=== PATIENT | female | born 1960 | race Two or more races ===

== ENCOUNTER 2024-12-23 19:30 | Inpatient (IN) | payer OTHER ==
[~2024-12-23] VITALS: Ht 175.3 cm; Wt 52.4 kg
[2024-12-23 20:01] LABS: BASOPHILS # (AUTO) 0.1 K/UL (0.0-0.2); BASOPHILS % (AUTO) 1.4 % (0.0-2.0); EOSINOPHILS % (AUTO) 0.1 % (0.0-7.0); HEMATOCRIT 34.4 % (31.2-41.9); HEMOGLOBIN 10.8 g/dL (10.9-14.3); LYMPHOCYTES # (AUTO) 1.6 K/uL (0.8-4.8); LYMPHOCYTES % (AUTO) 30.1 % (20.5-51.5); MEAN CORPUSCULAR HEMOGLOBIN 25.4 uug (24.7-32.8); MEAN CORPUSCULAR HGB CONC 31 g/dL (32.3-35.6); MEAN CORPUSCULAR VOLUME 80.9 fL (75.5-95.3); MONOCYTES # (AUTO) 0.4 K/uL (0.1-1.30); MONOCYTES % (AUTO) 6.6 % (0.0-11.0); NEUTROPHILS # (AUTO) 3.3 K/uL (1.8-8.9); NEUTROPHILS % (AUTO) 61.8 % (38.5-71.5); PLATELET COUNT (AUTO) 277 K/uL (179-408); RED BLOOD CELL COUNT(AUTO) 4.25 MIL/uL (3.63-4.92); RED CELL DISTRIBUTION WIDTH 23.9 % (12.3-17.7); WHITE BLOOD COUNT (AUTO) 5.3 K/uL (3.8-11.8)
[2024-12-23] MEDS ORDERED: DILTIAZEM HCL 25 MG IV ONE ×3 (20:01→22:04)
[2024-12-23 20:10] LABS: DIFFERENTIAL COMMENT 1
[2024-12-23 20:11] LABS: CALCIUM 9.6 mg/dL (8.5-10.1); CARBON DIOXIDE 24 mmol/L (21-32); CHLORIDE 101 mmol/L (98-107); CREATININE 1.8 mg/dL (0.6-1.3); GLUCOSE 189 mg/dL (74-106); POTASSIUM 4.7 mmol/L (3.5-5.1); SODIUM SERUM 138 mmol/L (136-145); UREA NITROGEN, BLOOD 58 mg/dL (7-18)
[2024-12-23] MEDS: DILTIAZEM HCL 25 MG IV IV ONE ×2 (20:11→22:10)
[2024-12-23 20:23] LABS: ALANINE AMINOTRANSFERASE 58 U/L (14-59); ALBUMIN 3.7 g/dL (3.4-5.0); ALKALINE PHOSPHATASE 164 U/L (50-136); ASPARTATE AMINOTRANSFERASE 59 U/L (15-37); BILIRUBIN,DIRECT 0.7 mg/dL (0.0-0.2); TOTAL PROTEIN, SERUM 8.5 g/dL (6.4-8.2)
[2024-12-23] MEDS ORDERED: DILTIAZEM HCL IV 125 MG in IV NORMAL SALINE 100 ML IV PRN (21:00)
[2024-12-23] MEDS: DILTIAZEM HCL IV 125 MG in IV NORMAL SALINE 100 ML IV PRN (21:41)
[2024-12-23] MEDS: IV NORMAL SALINE 1000 ML BAG IV ONE (22:04)
[2024-12-24] VITALS (13 sets, daily range): BP systolic 90–149; BP diastolic 31–82; TEMP 97.5–98.7; O2SAT 95–100
[2024-12-24] MEDS: HEPARIN SODIUM,PORCINE 5,000 UNITS/ML VIAL SQ SCH (02:10)
[2024-12-24] MEDS: CALCIUM CARBONATE 500 MG TAB.CHEW PO PRN (04:19)
[2024-12-24] MEDS: SIMETHICONE 80 MG TAB.CHEW PO PRN (05:41)
[2024-12-24 06:58] LABS: BASOPHILS # (AUTO) 0.1 K/UL (0.0-0.2); BASOPHILS % (AUTO) 1.2 % (0.0-2.0); EOSINOPHILS % (AUTO) 0.9 % (0.0-7.0); HEMATOCRIT 31.1 % (31.2-41.9); HEMOGLOBIN 9.9 g/dL (10.9-14.3); LYMPHOCYTES # (AUTO) 1.7 K/uL (0.8-4.8); LYMPHOCYTES % (AUTO) 31.3 % (20.5-51.5); MEAN CORPUSCULAR HEMOGLOBIN 25.9 uug (24.7-32.8); MEAN CORPUSCULAR HGB CONC 32 g/dL (32.3-35.6); MEAN CORPUSCULAR VOLUME 81.1 fL (75.5-95.3); MONOCYTES # (AUTO) 0.7 K/uL (0.1-1.30); MONOCYTES % (AUTO) 12.6 % (0.0-11.0); NEUTROPHILS # (AUTO) 2.9 K/uL (1.8-8.9); PLATELET COUNT (AUTO) 258 K/uL (179-408); RED BLOOD CELL COUNT(AUTO) 3.83 MIL/uL (3.63-4.92); WHITE BLOOD COUNT (AUTO) 5.4 K/uL (3.8-11.8)
[2024-12-24 07:09] LABS: DIFFERENTIAL COMMENT 1
[2024-12-24 07:20] LABS: CALCIUM 9.5 mg/dL (8.5-10.1); CREATININE 1.8 mg/dL (0.6-1.3); PHOSPHOROUS 4.6 mg/dL (2.5-4.9); POTASSIUM 4.9 mmol/L (3.5-5.1)
[2024-12-24] MEDS: DILTIAZEM HCL CD 240 MG CAP.SR.24H PO SCH (08:37)
[2024-12-24] MEDS: FUROSEMIDE 20 MG/2 ML VIAL IV SCH (09:13)
[2024-12-24] MEDS: METOPROLOL TARTRATE 50 MG TABLET PO SCH (09:13)
[2024-12-24] MEDS: DIGOXIN 125 MCG TABLET PO SCH (09:13)
[2024-12-24] MEDS: FAMOTIDINE. 20 MG/2 ML VIAL IV SCH (09:29)
[2024-12-24] MEDS ORDERED: WARF-68 PO (10:50)
[2024-12-24] MEDS ORDERED: WARF3TAB59 PO (10:51)
[2024-12-24] MEDS: GLUCERNA SHAKE 237 ML CAN PO SCH (17:15)
[2024-12-24] MEDS: WARFARIN SODIUM 2 MG TABLET PO SCH (17:17)
[2024-12-24] MEDS: MINERAL OIL FLEET ENEMA 133 ML BOTTLE RC ONE (18:34)
[2024-12-24] MEDS: ATROPINE SULFATE 1 MG/10 ML DISP.SYRIN IV ONE (18:37)
[2024-12-24] MEDS: ONDANSETRON 4 MG/2 ML VIAL IV PRN (20:59)
[2024-12-24] MEDS: MAGNESIUM HYDROXIDE 30 ML LIQUID UDC PO PRN (21:20)
[2024-12-24] MEDS: ACETAMINOPHEN 325 MG TABLET PO PRN (22:54)
[2024-12-25] VITALS (45 sets, daily range): BP systolic 76–143; BP diastolic 22–84; TEMP 89.9–98; O2SAT 92–100
[2024-12-25 07:18] LABS: BASOPHILS # (AUTO) 0.1 K/UL (0.0-0.2); BASOPHILS % (AUTO) 0.4 % (0.0-2.0); DIFFERENTIAL COMMENT 0; EOSINOPHILS # (AUTO) 0.3 K/uL (0.0-0.7); EOSINOPHILS % (AUTO) 1.4 % (0.0-7.0); HEMATOCRIT 34.5 % (31.2-41.9); LYMPHOCYTES # (AUTO) 0.9 K/uL (0.8-4.8); LYMPHOCYTES % (AUTO) 4.5 % (20.5-51.5); MEAN CORPUSCULAR HEMOGLOBIN 25.9 uug (24.7-32.8); MEAN CORPUSCULAR HGB CONC 29 g/dL (32.3-35.6); MEAN CORPUSCULAR VOLUME 89.4 fL (75.5-95.3); MONOCYTES # (AUTO) 1.5 K/uL (0.1-1.30); MONOCYTES % (AUTO) 7.7 % (0.0-11.0); NEUTROPHILS # (AUTO) 16.5 K/uL (1.8-8.9); PLATELET COUNT (AUTO) 242 K/uL (179-408); RED BLOOD CELL COUNT(AUTO) 3.86 MIL/uL (3.63-4.92); RED CELL DISTRIBUTION WIDTH 24.3 % (12.3-17.7); WHITE BLOOD COUNT (AUTO) 19.1 K/uL (3.8-11.8)
[2024-12-25] MEDS ORDERED: DOPamine IV DRIP 400 MG/250ML 250 ML IV PRN (07:45)
[2024-12-25 07:48] LABS: CREATINE KINASE, TOTAL 155 U/L (26-192)
[2024-12-25 08:12] LABS: ALANINE AMINOTRANSFERASE 252 U/L (14-59); ALBUMIN 3.1 g/dL (3.4-5.0); ALKALINE PHOSPHATASE 202 U/L (50-136); ASPARTATE AMINOTRANSFERASE 454 U/L (15-37); BILIRUBIN,DIRECT 1.4 mg/dL (0.0-0.2); BILIRUBIN,TOTAL 2.3 mg/dL (0.2-1.0); CALCIUM 9.4 mg/dL (8.5-10.1); CHLORIDE 103 mmol/L (98-107); CREATININE 2.9 mg/dL (0.6-1.3); MAGNESIUM 2.8 mg/dL (1.8-2.4); POTASSIUM 6.1 mmol/L (3.5-5.1); SODIUM SERUM 140 mmol/L (136-145); TOTAL PROTEIN, SERUM 7.4 g/dL (6.4-8.2); UREA NITROGEN, BLOOD 66 mg/dL (7-18)
[2024-12-25 08:21] LABS: CARBON DIOXIDE < 5 mmol/L (21-32); GLUCOSE 28 mg/dL (74-106); PHOSPHOROUS 11.2 mg/dL (2.5-4.9)
[2024-12-25 08:34] LABS: ABG BASE EXCESS -26.7 mmol/L (-2.0-3.0); ABG HCO3 5.2 mmol/L (21.0-28.0); ABG PCO2 28.2 mmHg (32.0-45.0); ABG PH 6.884 (7.350-7.450); ABG PO2 163.7 mmHg (83.0-108.0); ABG SITE RIGHT RADIAL; ABG TOTAL HEMOGLOBIN 10.4 G/dL (12.0-16.0); AaDO2 97.6 mmHg; COHb 0.3 % (0.5-1.5); MetHb 0.3 % (0.0-1.5); O2Hb 97.1 % (94.0-98.0)
[2024-12-25] MEDS ORDERED: CALCIUM CHLORIDE 1 GM/10 ML DISP.SYRIN IVP ONE (08:45)
[2024-12-25] MEDS ORDERED: ETOMIDATE 20 MG/10 ML VIAL ONE (08:45)
[2024-12-25 08:48] LABS: LACTIC ACID 17.9 mmol/L (0.4-2.0)
[2024-12-25] MEDS ORDERED: FAMOTIDINE. 20 MG/2 ML VIAL IV SCH ×2 (09:00→09:45)
[2024-12-25] MEDS ORDERED: PIPERACILLIN SODIUM/TAZOBACTAM 3.375 G in IV DEXTROSE 5% 50 ML IV SCH (09:30)
[2024-12-25] MEDS: SODIUM BICARBONATE 8.4% 50 MEQ/50 ML DISP.SYRIN IV ONE ×2 (09:36→10:56)
[2024-12-25] MEDS: SODIUM BICARBONATE 8.4% 150 MEQ in IV D5W 1000ML 1,000 ML IV SCH (09:36)
[2024-12-25] MEDS: DOPamine IV DRIP 400 MG/250ML 250 ML IV PRN (09:38)
[2024-12-25] MEDS: NOREPINEPHRINE 8MG/NS 250ML 250 ML IV PRN (09:39)
[2024-12-25] MEDS ORDERED: PIPERACILLIN/TAZO 2.25 G in IV DEXTROSE 5% 50 ML IV SCH (09:45)
[2024-12-25] MEDS ORDERED: SODIUM BICARBONATE 8.4% 100 MEQ in IV D5 1/2 NS 1000 ML 1,000 ML IV PRN (09:45)
[2024-12-25 09:48] LABS: EOSINOPHILS % (MANUAL) 1 % (0-8); LYMPHOCYTES % (MANUAL) 11 % (20-40); MONOCYTES % (MANUAL) 9 % (2-10); NEUTROPHILS % (MANUAL) 79 % (42-75); PLATELET ESTIMATE ADEQUATE
[2024-12-25 09:49] LABS: ANISOCYTOSIS 3+
[2024-12-25 10:34] LABS: ABG BASE EXCESS -18.5 mmol/L (-2.0-3.0); ABG HCO3 9.1 mmol/L (21.0-28.0); ABG PCO2 27.4 mmHg (32.0-45.0); ABG PH 7.137 (7.350-7.450); ABG PO2 361.1 mmHg (83.0-108.0); ABG SITE RIGHT RADIAL; ABG TOTAL HEMOGLOBIN 9.9 G/dL (12.0-16.0); AaDO2 99.7 mmHg; COHb 0.3 % (0.5-1.5); MetHb 0.3 % (0.0-1.5); O2Hb 99.1 % (94.0-98.0); VT, ABG 400 mL
[2024-12-25] MEDS: DEXTROSE 50% 50 ML DISP.SYRIN IV ONE (10:55)
[2024-12-25] MEDS: HYDROCORTISONE SOD SUCCINATE 100 MG/2 ML VIAL IV SCH (10:59)
[2024-12-25] MEDS: PANTOPRAZOLE SODIUM 40 MG VIAL IV SCH (10:59)
[2024-12-25] MEDS: VANCOMYCIN HCL 750 MG in IV DEXTROSE 5% 250 ML IV ONE (11:09)
[2024-12-25] MEDS: IV NS 1000 ML 1,000 ML IV ONE (12:13)
[2024-12-25] MEDS: PIPERACILLIN SODIUM/TAZOBACTAM 3.375 G in IV DEXTROSE 5% 100 ML IV SCH (12:39)
[2024-12-25 13:36] LABS: ALBUMIN 2.6 g/dL (3.4-5.0); BILIRUBIN,TOTAL 2.5 mg/dL (0.2-1.0); CALCIUM 9.3 mg/dL (8.5-10.1); CREATININE 3.2 mg/dL (0.6-1.3); MAGNESIUM 2.5 mg/dL (1.8-2.4); POTASSIUM 5.3 mmol/L (3.5-5.1); TOTAL PROTEIN, SERUM 6.1 g/dL (6.4-8.2)
[2024-12-25 13:39] LABS: BASOPHILS % (AUTO) 0.1 % (0.0-2.0); DIFFERENTIAL COMMENT 0; HEMATOCRIT 30.5 % (31.2-41.9); LYMPHOCYTES # (AUTO) 0.4 K/uL (0.8-4.8); LYMPHOCYTES % (AUTO) 2.3 % (20.5-51.5); MEAN CORPUSCULAR HEMOGLOBIN 25.5 uug (24.7-32.8); MEAN CORPUSCULAR HGB CONC 30 g/dL (32.3-35.6); MEAN CORPUSCULAR VOLUME 86.2 fL (75.5-95.3); MONOCYTES % (AUTO) 5.9 % (0.0-11.0); NEUTROPHILS # (AUTO) 15.5 K/uL (1.8-8.9); NEUTROPHILS % (AUTO) 91.7 % (38.5-71.5); PLATELET COUNT (AUTO) 203 K/uL (179-408); RED BLOOD CELL COUNT(AUTO) 3.54 MIL/uL (3.63-4.92); RED CELL DISTRIBUTION WIDTH 24.4 % (12.3-17.7); WHITE BLOOD COUNT (AUTO) 16.9 K/uL (3.8-11.8)
[2024-12-25] MEDS ORDERED: DEXTROSE 50% 50 ML DISP.SYRIN IV PRN (14:15)
[2024-12-25 14:37] LABS: *BILIRUBIN,URIN NEGATIVE (NEGATIVE); *BLOOD, URINE 2+ (NEGATIVE); *COLOR,URINE YELLOW (YELLOW); *KETONES,URINE NEGATIVE (NEGATIVE); *PROTEIN,URINE 3+ (NEGATIVE); *UROBILINOGEN,URINE 0.2 E.U./dl (NORMAL); LEUKOCYTE ESTERASE ,URINE NEGATIVE (NEGATIVE); NITRITE, URINE NEGATIVE (NEGATIVE); UGLUCOSE 1+ (NEGATIVE)
[2024-12-25 14:40] LABS: *CLARITY,URINE SLIGHTLY CLOUDY (CLEAR)
[2024-12-25 14:51] LABS: BACTERIA,URINE MANY /HPF (NONE SEEN); SQUAMOUS EPITHELIAL CELL,UR FEW /HPF (NONE SEEN)
[2024-12-25 16:18] LABS: HIV-1 p24 ANTIGEN NON REACTIVE (NONREACTIVE); HIV-1/2 ANTIBODY NON REACTIVE (NONREACTIVE)
[2024-12-25] MEDS ORDERED: WARFARIN SODIUM 2 MG TABLET PO SCH (17:00)
[2024-12-25] MEDS: BLOOD SUGAR DIAGNOSTIC 1 EACH STRIP VI SCH (17:57)
[2024-12-25] MEDS: INSULIN REGULAR, HUMAN 1000 UNIT/10 ML VIAL SQ PRN (17:58)
[2024-12-25] MEDS: HEPARIN SODIUM,PORCINE 5,000 UNITS/ML VIAL SQ SCH (20:50)
[2024-12-25 23:42] LABS: ALBUMIN 2.4 g/dL (3.4-5.0); BILIRUBIN,TOTAL 2.2 mg/dL (0.2-1.0); CALCIUM 8.4 mg/dL (8.5-10.1); CREATININE 3.7 mg/dL (0.6-1.3); MAGNESIUM 2.3 mg/dL (1.8-2.4); PHOSPHOROUS 5.5 mg/dL (2.5-4.9); POTASSIUM 4.4 mmol/L (3.5-5.1)
[2024-12-26] VITALS (87 sets, daily range): BP systolic 81–146; BP diastolic 44–109; TEMP 97.3–98.4; O2SAT 97–100
[2024-12-26] MEDS: PROPOFOL 100 ML IV PRN ×2 (00:55→16:12)
[2024-12-26 05:18] LABS: BASOPHILS # (AUTO) 0.2 K/UL (0.0-0.2); HEMATOCRIT 25.5 % (31.2-41.9); HEMOGLOBIN 8.3 g/dL (10.9-14.3); LYMPHOCYTES # (AUTO) 0.5 K/uL (0.8-4.8); LYMPHOCYTES % (AUTO) 3.7 % (20.5-51.5); MEAN CORPUSCULAR HEMOGLOBIN 26.2 uug (24.7-32.8); MEAN CORPUSCULAR HGB CONC 33 g/dL (32.3-35.6); MEAN CORPUSCULAR VOLUME 80.6 fL (75.5-95.3); MONOCYTES # (AUTO) 0.7 K/uL (0.1-1.30); MONOCYTES % (AUTO) 4.8 % (0.0-11.0); NEUTROPHILS # (AUTO) 13.6 K/uL (1.8-8.9); NEUTROPHILS % (AUTO) 90.5 % (38.5-71.5); PLATELET COUNT (AUTO) 181 K/uL (179-408); RED BLOOD CELL COUNT(AUTO) 3.16 MIL/uL (3.63-4.92); RED CELL DISTRIBUTION WIDTH 23.4 % (12.3-17.7)
[2024-12-26 05:19] LABS: DIFFERENTIAL COMMENT 1
[2024-12-26 05:27] LABS: ABG BASE EXCESS 5.7 mmol/L (-2.0-3.0); ABG HCO3 27.1 mmol/L (21.0-28.0); ABG PH 7.604 (7.350-7.450); ABG SITE RIGHT RADIAL; ABG TOTAL HEMOGLOBIN 9.1 G/dL (12.0-16.0); AaDO2 98.7 mmHg; COHb 0.3 % (0.5-1.5); MetHb 0.3 % (0.0-1.5); O2Hb 97.4 % (94.0-98.0); VT, ABG 400 mL
[2024-12-26 05:36] LABS: MAGNESIUM 2.5 mg/dL (1.8-2.4); PHOSPHOROUS 4.3 mg/dL (2.5-4.9)
[2024-12-26 05:39] LABS: C-REACTIVE PROTEIN 5.08 mg/dL (0.00-0.30)
[2024-12-26 05:41] LABS: ALBUMIN 2.2 g/dL (3.4-5.0); BILIRUBIN,TOTAL 2.1 mg/dL (0.2-1.0); CREATININE 3.8 mg/dL (0.6-1.3); POTASSIUM 3.7 mmol/L (3.5-5.1); TOTAL PROTEIN, SERUM 5.5 g/dL (6.4-8.2)
[2024-12-26 06:00] LABS: VANCOMYCIN,RANDOM 14.6 ug/mL (20.0-30.0)
[2024-12-26 08:07] LABS: PTH, INTACT 50 pg/mL (15-65)
[2024-12-26 08:07] LABS: HEPATITIS B CORE AB, TOTAL Negative (Negative); HEPATITIS B SURFACE AB, QUAL Non Reactive (.); HEPATITIS B SURFACE AG Negative (Negative); HEPATITIS C VIRUS ANTIBODY Non Reactive (Non Reactive)
[2024-12-26] MEDS ORDERED: ACETYLCYSTEINE IV 0 MG in IV DEXTROSE 5% 200 ML IV ONE (08:30)
[2024-12-26] MEDS ORDERED: VANCOMYCIN HCL 750 MG in IV DEXTROSE 5% 250 ML IV ONE (12:00)
[2024-12-26] MEDS: IV LACTATED RINGERS SOLUTION 1,000 ML IV PRN (13:00)
[2024-12-26] MEDS: ACETYLCYSTEINE IV ONE ×2 (13:42→15:51)
[2024-12-26] MEDS: DEXTROSE 5% IV ONE ×2 (13:42→15:51)
[2024-12-26] MEDS: MIDAZOLAM HCL 50 MG in IV NORMAL SALINE 40 ML IV PRN (14:25)
[2024-12-26 17:32] LABS: *BILIRUBIN,URIN NEGATIVE (NEGATIVE); *BLOOD, URINE 3+ (NEGATIVE); *CLARITY,URINE SLIGHTLY CLOUDY (CLEAR); *COLOR,URINE LIGHT YELLOW (YELLOW); *KETONES,URINE NEGATIVE (NEGATIVE); *PROTEIN,URINE 2+ (NEGATIVE); *UROBILINOGEN,URINE 0.2 E.U./dl (NORMAL); LEUKOCYTE ESTERASE ,URINE 2+ (NEGATIVE); NITRITE, URINE NEGATIVE (NEGATIVE); PH,URINE 8.5 (5.0-8.0); UGLUCOSE NEGATIVE (NEGATIVE)
[2024-12-26 17:48] LABS: *CREATININE,URINE < 13.0 mg/dL (30-125); *SODIUM RNDM,URINE 74 mmol/L (40-220); *URINE TOTAL PROTEIN RANDOM 56.5 mg/dL (<150/24HR)
[2024-12-26] MEDS ORDERED: DEXTROSE 5% IV ONE (19:00)
[2024-12-26] MEDS ORDERED: ACETYLCYSTEINE IV ONE (19:00)
[2024-12-26 19:26] LABS: RBC,URINE 20-50 /HPF (0-3); SQUAMOUS EPITHELIAL CELL,UR FEW /HPF (NONE SEEN)
[2024-12-26 19:27] LABS: BACTERIA,URINE MODERATE /HPF (NONE SEEN)
[2024-12-26] MEDS: ACETYLCYSTEINE IV SCH (19:56)
[2024-12-26] MEDS: DEXTROSE 5% IV SCH (19:56)
[2024-12-27] VITALS (101 sets, daily range): BP systolic 72–160; BP diastolic 23–129; TEMP 97.5–98.7; O2SAT 96–100
[2024-12-27 05:26] LABS: ABG BASE EXCESS 6.1 mmol/L (-2.0-3.0); ABG HCO3 26.1 mmol/L (21.0-28.0); ABG PCO2 24.6 mmHg (32.0-45.0); ABG PH 7.643 (7.350-7.450); ABG PO2 103.6 mmHg (83.0-108.0); ABG SITE LEFT RADIAL; ABG TOTAL HEMOGLOBIN 11.9 G/dL (12.0-16.0); AaDO2 98.7 mmHg; COHb 0.4 % (0.5-1.5); MetHb 0.3 % (0.0-1.5); O2Hb 97.3 % (94.0-98.0); VT, ABG 400 mL
[2024-12-27 05:48] LABS: HEMATOCRIT 33.5 % (31.2-41.9); HEMOGLOBIN 10.8 g/dL (10.9-14.3); LYMPHOCYTES # (AUTO) 0.7 K/uL (0.8-4.8); LYMPHOCYTES % (AUTO) 3.6 % (20.5-51.5); MEAN CORPUSCULAR HEMOGLOBIN 25.7 uug (24.7-32.8); MEAN CORPUSCULAR HGB CONC 32 g/dL (32.3-35.6); MEAN CORPUSCULAR VOLUME 79.8 fL (75.5-95.3); MONOCYTES # (AUTO) 0.4 K/uL (0.1-1.30); MONOCYTES % (AUTO) 2.1 % (0.0-11.0); NEUTROPHILS # (AUTO) 19.8 K/uL (1.8-8.9); NEUTROPHILS % (AUTO) 94.3 % (38.5-71.5); PLATELET COUNT (AUTO) 178 K/uL (179-408)
[2024-12-27 05:50] LABS: DIFFERENTIAL COMMENT 1
[2024-12-27 05:53] LABS: AMMONIA < 10 umol/L (11-32)
[2024-12-27 06:05] LABS: LACTIC ACID 3.3 mmol/L (0.4-2.0)
[2024-12-27 06:10] LABS: ALANINE AMINOTRANSFERASE 1614 U/L (14-59); ALBUMIN 2.4 g/dL (3.4-5.0); ALKALINE PHOSPHATASE 169 U/L (50-136); ASPARTATE AMINOTRANSFERASE 1914 U/L (15-37); BILIRUBIN,DIRECT 1.5 mg/dL (0.0-0.2); BILIRUBIN,TOTAL 2.8 mg/dL (0.2-1.0); MAGNESIUM 2.8 mg/dL (1.8-2.4); PHOSPHOROUS 3.4 mg/dL (2.5-4.9); TOTAL PROTEIN, SERUM 6.4 g/dL (6.4-8.2); VANCOMYCIN,RANDOM 10.1 ug/mL (20.0-30.0)
[2024-12-27 09:11] LABS: CALCIUM 8.4 mg/dL (8.5-10.1); CREATININE 3.6 mg/dL (0.6-1.3); POTASSIUM 3.1 mmol/L (3.5-5.1)
[2024-12-27] MEDS: POTASSIUM CHLORIDE 50 ML IV SCH (11:01)
[2024-12-27] MEDS: VANCOMYCIN HCL 750 MG in IV DEXTROSE 5% 250 ML IV ONE (11:14)
[2024-12-28] VITALS (101 sets, daily range): BP systolic 108–196; BP diastolic 46–108; TEMP 97–98.3; O2SAT 99–100
[2024-12-28] MEDS ORDERED: ACETAMINOPHEN 325 MG TABLET PO PRN (05:00)
[2024-12-28 05:26] LABS: ABG BASE EXCESS 2.1 mmol/L (-2.0-3.0); ABG HCO3 23.3 mmol/L (21.0-28.0); ABG PCO2 25.9 mmHg (32.0-45.0); ABG PH 7.571 (7.350-7.450); ABG PO2 116.4 mmHg (83.0-108.0); ABG SITE RIGHT RADIAL; ABG TOTAL HEMOGLOBIN 10.9 G/dL (12.0-16.0); AaDO2 98.8 mmHg; COHb 0.3 % (0.5-1.5); MetHb 0.3 % (0.0-1.5); O2Hb 97.8 % (94.0-98.0); VT, ABG 400 mL
[2024-12-28 05:30] LABS: BASOPHILS % (AUTO) 0.1 % (0.0-2.0); HEMATOCRIT 30.7 % (31.2-41.9); HEMOGLOBIN 9.9 g/dL (10.9-14.3); LYMPHOCYTES # (AUTO) 0.8 K/uL (0.8-4.8); LYMPHOCYTES % (AUTO) 4.6 % (20.5-51.5); MEAN CORPUSCULAR HEMOGLOBIN 25.9 uug (24.7-32.8); MEAN CORPUSCULAR HGB CONC 32 g/dL (32.3-35.6); MEAN CORPUSCULAR VOLUME 80.3 fL (75.5-95.3); MONOCYTES # (AUTO) 0.5 K/uL (0.1-1.30); MONOCYTES % (AUTO) 2.7 % (0.0-11.0); NEUTROPHILS # (AUTO) 17.1 K/uL (1.8-8.9); NEUTROPHILS % (AUTO) 92.6 % (38.5-71.5); PLATELET COUNT (AUTO) 157 K/uL (179-408); RED BLOOD CELL COUNT(AUTO) 3.83 MIL/uL (3.63-4.92); RED CELL DISTRIBUTION WIDTH 24.3 % (12.3-17.7); WHITE BLOOD COUNT (AUTO) 18.5 K/uL (3.8-11.8)
[2024-12-28 05:35] LABS: DIFFERENTIAL COMMENT 1
[2024-12-28 05:57] LABS: MAGNESIUM 2.4 mg/dL (1.8-2.4); VANCOMYCIN,RANDOM 18.6 ug/mL (20.0-30.0)
[2024-12-28 06:00] LABS: ALBUMIN 2.1 g/dL (3.4-5.0); BILIRUBIN,TOTAL 1.8 mg/dL (0.2-1.0); CALCIUM 7.9 mg/dL (8.5-10.1); CREATININE 2.8 mg/dL (0.6-1.3); POTASSIUM 2.9 mmol/L (3.5-5.1); TOTAL PROTEIN, SERUM 5.7 g/dL (6.4-8.2)
[2024-12-28 06:15] LABS: ANISOCYTOSIS 2+; BAND % (MANUAL) 3 % (0-10); HYPOCHROMASIA 1+; LYMPHOCYTES % (MANUAL) 4 % (20-40); MONOCYTES % (MANUAL) 3 % (2-10); MYELOCYTES % 1 % (0-0); NEUTROPHILS % (MANUAL) 89 % (42-75); OVALOCYTES 2+; PLATELET ESTIMATE ADEQUATE; TARGET CELLS 1+
[2024-12-28] MEDS: PHYTONADIONE 10 MG/1 ML AMPUL SQ ONE (09:45)
[2024-12-28] MEDS: POTASSIUM CHLORIDE 20 MEQ POWDER PACKET GT ONE (09:45)
[2024-12-28] MEDS: VANCOMYCIN IV 500 MG in IV DEXTROSE 5% 100 ML IV ONE (09:46)
[2024-12-28 18:09] LABS: THYROID STIMULATING HORMONE 0.079 mIU/mL (0.358-3.740)
[2024-12-28 19:14] LABS: HIV-1 p24 ANTIGEN NON REACTIVE (NONREACTIVE); HIV-1/2 ANTIBODY NON REACTIVE (NONREACTIVE)
[2024-12-28 19:24] LABS: *RHEUMATOID FACTOR SCREEN NEGATIVE (NEGATIVE)
[2024-12-29] VITALS (93 sets, daily range): BP systolic 116–160; BP diastolic 66–112; TEMP 97.4–97.6; O2SAT 98–100
[2024-12-29 05:32] LABS: BASOPHILS % (AUTO) 0.2 % (0.0-2.0); DIFFERENTIAL COMMENT 0; HEMATOCRIT 24.9 % (31.2-41.9); HEMOGLOBIN 8.2 g/dL (10.9-14.3); LYMPHOCYTES # (AUTO) 0.8 K/uL (0.8-4.8); LYMPHOCYTES % (AUTO) 6.8 % (20.5-51.5); MEAN CORPUSCULAR HEMOGLOBIN 26.3 uug (24.7-32.8); MEAN CORPUSCULAR HGB CONC 33 g/dL (32.3-35.6); MEAN CORPUSCULAR VOLUME 80.3 fL (75.5-95.3); MONOCYTES # (AUTO) 0.4 K/uL (0.1-1.30); MONOCYTES % (AUTO) 3.5 % (0.0-11.0); NEUTROPHILS # (AUTO) 10.4 K/uL (1.8-8.9); NEUTROPHILS % (AUTO) 89.5 % (38.5-71.5); PLATELET COUNT (AUTO) 115 K/uL (179-408); RED CELL DISTRIBUTION WIDTH 24.1 % (12.3-17.7); WHITE BLOOD COUNT (AUTO) 11.7 K/uL (3.8-11.8)
[2024-12-29 05:41] LABS: ALBUMIN 2.5 g/dL (3.4-5.0); BILIRUBIN,DIRECT 0.9 mg/dL (0.0-0.2); BILIRUBIN,TOTAL 1.5 mg/dL (0.2-1.0); CALCIUM 8.2 mg/dL (8.5-10.1); CREATININE 2.3 mg/dL (0.6-1.3); MAGNESIUM 2.1 mg/dL (1.8-2.4); POTASSIUM 2.9 mmol/L (3.5-5.1); TOTAL PROTEIN, SERUM 6.2 g/dL (6.4-8.2); VANCOMYCIN,RANDOM 19.6 ug/mL (20.0-30.0)
[2024-12-29 06:11] LABS: ABG BASE EXCESS 3.4 mmol/L (-2.0-3.0); ABG HCO3 24.9 mmol/L (21.0-28.0); ABG PCO2 26.8 mmHg (32.0-45.0); ABG PH 7.586 (7.350-7.450); ABG SITE LEFT RADIAL; AaDO2 98.9 mmHg; COHb 0.4 % (0.5-1.5); MetHb 0.4 % (0.0-1.5); O2Hb 97.8 % (94.0-98.0); VT, ABG 400 mL
[2024-12-29] MEDS: POTASSIUM CHLORIDE 50 ML IV SCH (09:00)
[2024-12-29 11:23] LABS: BASOPHILS % (AUTO) 0.2 % (0.0-2.0); HEMATOCRIT 25.3 % (31.2-41.9); HEMOGLOBIN 8.3 g/dL (10.9-14.3); LYMPHOCYTES # (AUTO) 0.8 K/uL (0.8-4.8); MEAN CORPUSCULAR HEMOGLOBIN 26.3 uug (24.7-32.8); MEAN CORPUSCULAR HGB CONC 33 g/dL (32.3-35.6); MEAN CORPUSCULAR VOLUME 80.6 fL (75.5-95.3); MONOCYTES # (AUTO) 0.4 K/uL (0.1-1.30); MONOCYTES % (AUTO) 4.4 % (0.0-11.0); NEUTROPHILS # (AUTO) 8.6 K/uL (1.8-8.9); NEUTROPHILS % (AUTO) 87.4 % (38.5-71.5); PLATELET COUNT (AUTO) 103 K/uL (179-408); RED BLOOD CELL COUNT(AUTO) 3.14 MIL/uL (3.63-4.92); RED CELL DISTRIBUTION WIDTH 24.6 % (12.3-17.7); WHITE BLOOD COUNT (AUTO) 9.9 K/uL (3.8-11.8)
[2024-12-29 11:29] LABS: DIFFERENTIAL COMMENT 1
[2024-12-29] MEDS: SOD FERRIC GLUC COMPLX/SUCROSE 125 MG in IV NORMAL SALINE 100 ML IV SCH (13:56)
[2024-12-30] VITALS (97 sets, daily range): BP systolic 116–149; BP diastolic 73–111; TEMP 97.5–98.4; O2SAT 99–100
[2024-12-30 04:07] LABS: HEPATITIS B SURFACE AB, QUAL Non Reactive (.); HEPATITIS B SURFACE AG Negative (Negative); HEPATITIS C VIRUS ANTIBODY Non Reactive (Non Reactive)
[2024-12-30 05:09] LABS: *IMMUNOGLOBULIN G, SERUM 1280 mg/dL (586-1602); IMMUNOGLOBULIN A, SERUM 462 mg/dL (87-352); IMMUNOGLOBULIN M, SERUM 89 mg/dL (26-217)
[2024-12-30 05:27] LABS: BASOPHILS % (AUTO) 0.1 % (0.0-2.0); HEMATOCRIT 29.7 % (31.2-41.9); HEMOGLOBIN 9.6 g/dL (10.9-14.3); LYMPHOCYTES # (AUTO) 0.8 K/uL (0.8-4.8); LYMPHOCYTES % (AUTO) 9.2 % (20.5-51.5); MEAN CORPUSCULAR HEMOGLOBIN 25.9 uug (24.7-32.8); MEAN CORPUSCULAR HGB CONC 32 g/dL (32.3-35.6); MEAN CORPUSCULAR VOLUME 80.5 fL (75.5-95.3); MONOCYTES # (AUTO) 0.3 K/uL (0.1-1.30); MONOCYTES % (AUTO) 3.7 % (0.0-11.0); NEUTROPHILS # (AUTO) 7.5 K/uL (1.8-8.9); PLATELET COUNT (AUTO) 130 K/uL (179-408); RED BLOOD CELL COUNT(AUTO) 3.69 MIL/uL (3.63-4.92); RED CELL DISTRIBUTION WIDTH 24.3 % (12.3-17.7); WHITE BLOOD COUNT (AUTO) 8.6 K/uL (3.8-11.8)
[2024-12-30 05:39] LABS: DIFFERENTIAL COMMENT 1
[2024-12-30 05:41] LABS: CALCIUM 7.9 mg/dL (8.5-10.1); CREATININE 1.9 mg/dL (0.6-1.3); MAGNESIUM 1.9 mg/dL (1.8-2.4); PHOSPHOROUS 3.8 mg/dL (2.5-4.9); POTASSIUM 2.8 mmol/L (3.5-5.1)
[2024-12-30 06:11] LABS: FOLATE (FOLIC ACID), SERUM 9.9 ng/mL (>3.0)
[2024-12-30] MEDS: POTASSIUM CHLORIDE 20 MEQ POWDER PACKET GT ONE (07:45)
[2024-12-30] MEDS: POTASSIUM CHLORIDE 50 ML IV SCH (08:14)
[2024-12-30] MEDS: PIPERACILLIN SODIUM/TAZOBACTAM 3.375 G in IV DEXTROSE 5% 100 ML IV SCH (08:15)
[2024-12-30 12:09] LABS: *ANTI-SCLERODERMA-70 AB <0.2 AI (0.0-0.9); *RNP ANTIBODIES <0.2 AI (0.0-0.9); *SJOGREN'S ANTI-SS-A <0.2 AI (0.0-0.9); *SJOGREN'S ANTI-SS-B <0.2 AI (0.0-0.9); *SMITH ANTIBODIES <0.2 AI (0.0-0.9); ANTI-DNA(DS) AB, QN <1 IU/mL (0-9); ANTI-NUCLEAR AB DIRECT Negative (Negative)
[2024-12-30] MEDS ORDERED: ACETAMINOPHEN 650 MG SUPP.RECT RC PRN (16:15)
[2024-12-30] MEDS: POTASSIUM CHLORIDE 20 MEQ in IV D5 1/2 NS 1000 ML 1,000 ML IV PRN (17:37)
[2024-12-31] VITALS (97 sets, daily range): BP systolic 63–156; BP diastolic 44–116; TEMP 97.5–98.4; O2SAT 99–100
[2024-12-31 05:13] LABS: BASOPHILS % (AUTO) 0.2 % (0.0-2.0); EOSINOPHILS % (AUTO) 0.1 % (0.0-7.0); HEMATOCRIT 31.7 % (31.2-41.9); LYMPHOCYTES # (AUTO) 0.5 K/uL (0.8-4.8); LYMPHOCYTES % (AUTO) 5.2 % (20.5-51.5); MEAN CORPUSCULAR HEMOGLOBIN 25.7 uug (24.7-32.8); MEAN CORPUSCULAR HGB CONC 32 g/dL (32.3-35.6); MEAN CORPUSCULAR VOLUME 81.1 fL (75.5-95.3); MONOCYTES # (AUTO) 0.5 K/uL (0.1-1.30); MONOCYTES % (AUTO) 4.5 % (0.0-11.0); NEUTROPHILS # (AUTO) 9.2 K/uL (1.8-8.9); PLATELET COUNT (AUTO) 122 K/uL (179-408); RED BLOOD CELL COUNT(AUTO) 3.91 MIL/uL (3.63-4.92); RED CELL DISTRIBUTION WIDTH 24.4 % (12.3-17.7); WHITE BLOOD COUNT (AUTO) 10.2 K/uL (3.8-11.8)
[2024-12-31 05:28] LABS: DIFFERENTIAL COMMENT 1
[2024-12-31 05:40] LABS: ALBUMIN 2.2 g/dL (3.4-5.0); BILIRUBIN,DIRECT 0.7 mg/dL (0.0-0.2); BILIRUBIN,TOTAL 1.1 mg/dL (0.2-1.0); CREATININE 1.6 mg/dL (0.6-1.3); MAGNESIUM 1.9 mg/dL (1.8-2.4); PHOSPHOROUS 3.5 mg/dL (2.5-4.9); TOTAL PROTEIN, SERUM 5.9 g/dL (6.4-8.2)
[2024-12-31 05:51] LABS: POTASSIUM 2.7 mmol/L (3.5-5.1)
[2024-12-31 06:12] LABS: ABG BASE EXCESS 0.6 mmol/L (-2.0-3.0); ABG HCO3 22.1 mmol/L (21.0-28.0); ABG PCO2 25.6 mmHg (32.0-45.0); ABG PH 7.554 (7.350-7.450); ABG PO2 112.6 mmHg (83.0-108.0); ABG SITE LEFT RADIAL; ABG TOTAL HEMOGLOBIN 10.2 G/dL (12.0-16.0); AaDO2 98.7 mmHg; COHb 0.3 % (0.5-1.5); MetHb 0.3 % (0.0-1.5); O2Hb 97.6 % (94.0-98.0); VT, ABG 400 mL
[2024-12-31] MEDS: POTASSIUM CHLORIDE 50 ML IV SCH ×2 (06:22→13:48)
[2024-12-31] MEDS: PANTOPRAZOLE SODIUM 40 MG VIAL IV SCH (08:44)
[2024-12-31] MEDS: FUROSEMIDE 20 MG/2 ML VIAL IV SCH (08:44)
[2024-12-31 12:11] LABS: A/G RATIO 0.9 (0.7-1.7); ALBUMIN 3.4 g/dL (2.9-4.4); ALPHA-1-GLOBULIN 0.3 g/dL (0.0-0.4); ALPHA-2-GLOBULIN 0.6 g/dL (0.4-1.0); BETA GLOBULIN 1.1 g/dL (0.7-1.3); GAMMA GLOBULIN 1.6 g/dL (0.4-1.8); GLOBULIN, TOTAL 3.6 g/dL (2.2-3.9); M-SPIKE Not Observed g/dL (Not Observed)
[2024-12-31] MEDS: AMPICILLIN 2 G in NS 100 ML IV SCH (14:15)
[2025-01-01] VITALS (94 sets, daily range): BP systolic 86–134; BP diastolic 58–97; TEMP 97.2–97.7; O2SAT 95–100
[2025-01-01 05:27] LABS: BASOPHILS # (AUTO) 0.1 K/UL (0.0-0.2); BASOPHILS % (AUTO) 0.6 % (0.0-2.0); HEMATOCRIT 29.3 % (31.2-41.9); HEMOGLOBIN 9.3 g/dL (10.9-14.3); LYMPHOCYTES # (AUTO) 0.8 K/uL (0.8-4.8); LYMPHOCYTES % (AUTO) 10.2 % (20.5-51.5); MEAN CORPUSCULAR HGB CONC 32 g/dL (32.3-35.6); MEAN CORPUSCULAR VOLUME 81.9 fL (75.5-95.3); MONOCYTES # (AUTO) 0.6 K/uL (0.1-1.30); MONOCYTES % (AUTO) 6.7 % (0.0-11.0); NEUTROPHILS # (AUTO) 6.8 K/uL (1.8-8.9); NEUTROPHILS % (AUTO) 82.5 % (38.5-71.5); PLATELET COUNT (AUTO) 112 K/uL (179-408); RED BLOOD CELL COUNT(AUTO) 3.58 MIL/uL (3.63-4.92); RED CELL DISTRIBUTION WIDTH 24.2 % (12.3-17.7); WHITE BLOOD COUNT (AUTO) 8.3 K/uL (3.8-11.8)
[2025-01-01 05:38] LABS: ABG HCO3 22.5 mmol/L (21.0-28.0); ABG PCO2 25.5 mmHg (32.0-45.0); ABG PH 7.563 (7.350-7.450); ABG SITE LEFT RADIAL; ABG TOTAL HEMOGLOBIN 9.6 G/dL (12.0-16.0); AaDO2 99.1 mmHg; COHb 0.2 % (0.5-1.5); MetHb 0.3 % (0.0-1.5); O2Hb 98.5 % (94.0-98.0); VT, ABG 400 mL
[2025-01-01 05:48] LABS: DIFFERENTIAL COMMENT 1
[2025-01-01 06:02] LABS: CALCIUM 7.5 mg/dL (8.5-10.1); CREATININE 1.6 mg/dL (0.6-1.3); MAGNESIUM 1.6 mg/dL (1.8-2.4); PHOSPHOROUS 3.1 mg/dL (2.5-4.9); POTASSIUM 3.4 mmol/L (3.5-5.1)
[2025-01-01 07:10] LABS: FREE KAPPA LT CHAINS SERUM 71.5 mg/L (3.3-19.4); FREE LAMBDA LT CHAIN SERUM 25.4 mg/L (5.7-26.3); KAPPA/LAMBDA RATIO SERUM 2.81 (0.26-1.65)
[2025-01-01] MEDS: MAGNESIUM SULFATE/D5W 100 ML IV SCH (09:00)
[2025-01-01] MEDS: POTASSIUM CHLORIDE 50 ML IV SCH (09:01)
[2025-01-01] MEDS: SOD FERRIC GLUC COMPLX/SUCROSE 125 MG in IV NORMAL SALINE 100 ML IV SCH (14:28)
[2025-01-02] VITALS (95 sets, daily range): BP systolic 87–149; BP diastolic 64–104; TEMP 97.6–98; O2SAT 99–100
[2025-01-02 04:59] LABS: BASOPHILS % (AUTO) 0.2 % (0.0-2.0); EOSINOPHILS % (AUTO) 0.2 % (0.0-7.0); HEMATOCRIT 28.8 % (31.2-41.9); HEMOGLOBIN 9.3 g/dL (10.9-14.3); LYMPHOCYTES # (AUTO) 0.9 K/uL (0.8-4.8); LYMPHOCYTES % (AUTO) 11.9 % (20.5-51.5); MEAN CORPUSCULAR HEMOGLOBIN 26.6 uug (24.7-32.8); MEAN CORPUSCULAR HGB CONC 32 g/dL (32.3-35.6); MEAN CORPUSCULAR VOLUME 82.1 fL (75.5-95.3); MONOCYTES # (AUTO) 0.4 K/uL (0.1-1.30); MONOCYTES % (AUTO) 4.7 % (0.0-11.0); NEUTROPHILS # (AUTO) 6.4 K/uL (1.8-8.9); PLATELET COUNT (AUTO) 138 K/uL (179-408); RED BLOOD CELL COUNT(AUTO) 3.51 MIL/uL (3.63-4.92); RED CELL DISTRIBUTION WIDTH 24.1 % (12.3-17.7); WHITE BLOOD COUNT (AUTO) 7.7 K/uL (3.8-11.8)
[2025-01-02 05:09] LABS: DIFFERENTIAL COMMENT 1
[2025-01-02 05:21] LABS: ALBUMIN 1.8 g/dL (3.4-5.0); BILIRUBIN,TOTAL 0.8 mg/dL (0.2-1.0); CALCIUM 7.8 mg/dL (8.5-10.1); CREATININE 1.4 mg/dL (0.6-1.3); MAGNESIUM 2.4 mg/dL (1.8-2.4); POTASSIUM 3.6 mmol/L (3.5-5.1); TOTAL PROTEIN, SERUM 5.4 g/dL (6.4-8.2)
[2025-01-02 05:46] LABS: ABG BASE EXCESS -1.3 mmol/L (-2.0-3.0); ABG HCO3 21.7 mmol/L (21.0-28.0); ABG PCO2 30.4 mmHg (32.0-45.0); ABG PH 7.471 (7.350-7.450); ABG SITE RIGHT BRACHIAL; ABG TOTAL HEMOGLOBIN 10.8 G/dL (12.0-16.0); AaDO2 98.5 mmHg; COHb 0.3 % (0.5-1.5); MetHb 0.4 % (0.0-1.5); O2Hb 97.4 % (94.0-98.0); VT, ABG 400 mL
[2025-01-02] MEDS: POTASSIUM CHLORIDE 50 ML IV SCH (09:22)
[2025-01-03] VITALS (95 sets, daily range): BP systolic 97–142; BP diastolic 66–105; TEMP 97.3–98.5; O2SAT 99–100
[2025-01-03 04:50] LABS: BASOPHILS % (AUTO) 0.3 % (0.0-2.0); EOSINOPHILS % (AUTO) 0.2 % (0.0-7.0); HEMATOCRIT 27.8 % (31.2-41.9); HEMOGLOBIN 8.9 g/dL (10.9-14.3); LYMPHOCYTES # (AUTO) 0.7 K/uL (0.8-4.8); LYMPHOCYTES % (AUTO) 8.8 % (20.5-51.5); MEAN CORPUSCULAR HEMOGLOBIN 26.4 uug (24.7-32.8); MEAN CORPUSCULAR HGB CONC 32 g/dL (32.3-35.6); MEAN CORPUSCULAR VOLUME 82.4 fL (75.5-95.3); MONOCYTES # (AUTO) 0.3 K/uL (0.1-1.30); MONOCYTES % (AUTO) 4.5 % (0.0-11.0); NEUTROPHILS # (AUTO) 6.6 K/uL (1.8-8.9); NEUTROPHILS % (AUTO) 86.2 % (38.5-71.5); PLATELET COUNT (AUTO) 159 K/uL (179-408); RED BLOOD CELL COUNT(AUTO) 3.37 MIL/uL (3.63-4.92); RED CELL DISTRIBUTION WIDTH 24.3 % (12.3-17.7); WHITE BLOOD COUNT (AUTO) 7.6 K/uL (3.8-11.8)
[2025-01-03 04:55] LABS: DIFFERENTIAL COMMENT 1
[2025-01-03 05:06] LABS: CALCIUM 8.1 mg/dL (8.5-10.1); CREATININE 1.4 mg/dL (0.6-1.3); MAGNESIUM 2.3 mg/dL (1.8-2.4); PHOSPHOROUS 3.9 mg/dL (2.5-4.9); POTASSIUM 3.4 mmol/L (3.5-5.1)
[2025-01-03] MEDS: GLUCERNA 1.2 1000ML LIQUID GT PRN (09:32)
[2025-01-03] MEDS: POTASSIUM CHLORIDE 50 ML IV SCH (10:49)
[2025-01-03] MEDS: ENOXAPARIN SODIUM 60 MG/0.6 ML DISP.SYRIN SQ SCH (20:20)
[2025-01-04] VITALS (60 sets, daily range): BP systolic 88–156; BP diastolic 51–108; TEMP 97.1–99; O2SAT 98–100
[2025-01-04 05:08] LABS: BASOPHILS % (AUTO) 0.2 % (0.0-2.0); HEMATOCRIT 26.9 % (31.2-41.9); HEMOGLOBIN 8.6 g/dL (10.9-14.3); LYMPHOCYTES # (AUTO) 0.6 K/uL (0.8-4.8); LYMPHOCYTES % (AUTO) 5.6 % (20.5-51.5); MEAN CORPUSCULAR HEMOGLOBIN 26.3 uug (24.7-32.8); MEAN CORPUSCULAR HGB CONC 32 g/dL (32.3-35.6); MEAN CORPUSCULAR VOLUME 82.5 fL (75.5-95.3); MONOCYTES # (AUTO) 0.5 K/uL (0.1-1.30); MONOCYTES % (AUTO) 5.3 % (0.0-11.0); NEUTROPHILS # (AUTO) 9.1 K/uL (1.8-8.9); NEUTROPHILS % (AUTO) 88.9 % (38.5-71.5); PLATELET COUNT (AUTO) 188 K/uL (179-408); RED BLOOD CELL COUNT(AUTO) 3.26 MIL/uL (3.63-4.92); RED CELL DISTRIBUTION WIDTH 23.8 % (12.3-17.7); WHITE BLOOD COUNT (AUTO) 10.2 K/uL (3.8-11.8)
[2025-01-04 05:24] LABS: DIFFERENTIAL COMMENT 1
[2025-01-04 05:39] LABS: ALBUMIN 2.2 g/dL (3.4-5.0); BILIRUBIN,DIRECT 0.3 mg/dL (0.0-0.2); BILIRUBIN,TOTAL 0.5 mg/dL (0.2-1.0); CALCIUM 8.4 mg/dL (8.5-10.1); CREATININE 1.5 mg/dL (0.6-1.3); MAGNESIUM 2.1 mg/dL (1.8-2.4); TOTAL PROTEIN, SERUM 5.9 g/dL (6.4-8.2)
[2025-01-04] MEDS: HYDROCORTISONE SOD SUCCINATE 100 MG/2 ML VIAL IV SCH (09:16)
[2025-01-04] MEDS: POTASSIUM CHLORIDE 20 MEQ POWDER PACKET GT SCH (09:22)
[2025-01-04 11:53] LABS: POTASSIUM 3.4 mmol/L (3.5-5.1)
[2025-01-05] VITALS (47 sets, daily range): BP systolic 93–130; BP diastolic 68–103; TEMP 97.6–98.5; O2SAT 99–100
[2025-01-05 05:25] LABS: BASOPHILS % (AUTO) 0.3 % (0.0-2.0); EOSINOPHILS % (AUTO) 0.3 % (0.0-7.0); HEMATOCRIT 26.5 % (31.2-41.9); HEMOGLOBIN 8.5 g/dL (10.9-14.3); LYMPHOCYTES # (AUTO) 0.7 K/uL (0.8-4.8); LYMPHOCYTES % (AUTO) 6.5 % (20.5-51.5); MEAN CORPUSCULAR HEMOGLOBIN 26.6 uug (24.7-32.8); MEAN CORPUSCULAR HGB CONC 32 g/dL (32.3-35.6); MEAN CORPUSCULAR VOLUME 83.1 fL (75.5-95.3); MONOCYTES # (AUTO) 0.4 K/uL (0.1-1.30); MONOCYTES % (AUTO) 4.2 % (0.0-11.0); NEUTROPHILS # (AUTO) 8.9 K/uL (1.8-8.9); NEUTROPHILS % (AUTO) 88.7 % (38.5-71.5); PLATELET COUNT (AUTO) 190 K/uL (179-408); RED BLOOD CELL COUNT(AUTO) 3.18 MIL/uL (3.63-4.92); RED CELL DISTRIBUTION WIDTH 24.7 % (12.3-17.7); WHITE BLOOD COUNT (AUTO) 10.1 K/uL (3.8-11.8)
[2025-01-05 05:40] LABS: ALBUMIN 2.1 g/dL (3.4-5.0); BILIRUBIN,DIRECT 0.3 mg/dL (0.0-0.2); BILIRUBIN,TOTAL 0.5 mg/dL (0.2-1.0); CALCIUM 8.3 mg/dL (8.5-10.1); CREATININE 1.3 mg/dL (0.6-1.3); PHOSPHOROUS 3.4 mg/dL (2.5-4.9); POTASSIUM 3.6 mmol/L (3.5-5.1); TOTAL PROTEIN, SERUM 6.1 g/dL (6.4-8.2)
[2025-01-05 05:51] LABS: DIFFERENTIAL COMMENT 1
[2025-01-05] MEDS: FREE WATER VIA TUBE FEEDING NG SCH (09:11)
[2025-01-05 09:28] LABS: ABG BASE EXCESS 2.1 mmol/L (-2.0-3.0); ABG HCO3 26.4 mmol/L (21.0-28.0); ABG PCO2 39.7 mmHg (32.0-45.0); ABG PH 7.441 (7.350-7.450); ABG PO2 114.5 mmHg (83.0-108.0); ABG SITE LEFT RADIAL; ABG TOTAL HEMOGLOBIN 8.8 G/dL (12.0-16.0); AaDO2 98.3 mmHg; COHb 0.2 % (0.5-1.5); MetHb 0.4 % (0.0-1.5); O2Hb 97.6 % (94.0-98.0)
[2025-01-06] VITALS (65 sets, daily range): BP systolic 87–125; BP diastolic 51–106; TEMP 98.2–98.5; O2SAT 99–100
[2025-01-06 04:57] LABS: BASOPHILS % (AUTO) 0.1 % (0.0-2.0); EOSINOPHILS % (AUTO) 0.2 % (0.0-7.0); HEMATOCRIT 25.1 % (31.2-41.9); LYMPHOCYTES # (AUTO) 0.4 K/uL (0.8-4.8); LYMPHOCYTES % (AUTO) 4.2 % (20.5-51.5); MEAN CORPUSCULAR HEMOGLOBIN 26.3 uug (24.7-32.8); MEAN CORPUSCULAR HGB CONC 32 g/dL (32.3-35.6); MEAN CORPUSCULAR VOLUME 82.5 fL (75.5-95.3); MONOCYTES # (AUTO) 0.2 K/uL (0.1-1.30); MONOCYTES % (AUTO) 2.2 % (0.0-11.0); NEUTROPHILS # (AUTO) 9.4 K/uL (1.8-8.9); NEUTROPHILS % (AUTO) 93.3 % (38.5-71.5); PLATELET COUNT (AUTO) 207 K/uL (179-408); RED BLOOD CELL COUNT(AUTO) 3.04 MIL/uL (3.63-4.92); RED CELL DISTRIBUTION WIDTH 23.9 % (12.3-17.7); WHITE BLOOD COUNT (AUTO) 10.1 K/uL (3.8-11.8)
[2025-01-06 05:11] LABS: DIFFERENTIAL COMMENT 1
[2025-01-06 05:29] LABS: CALCIUM 8.2 mg/dL (8.5-10.1); CREATININE 1.1 mg/dL (0.6-1.3); MAGNESIUM 1.8 mg/dL (1.8-2.4); PHOSPHOROUS 2.8 mg/dL (2.5-4.9); POTASSIUM 3.4 mmol/L (3.5-5.1)
[2025-01-06 05:55] LABS: ABG BASE EXCESS 4.3 mmol/L (-2.0-3.0); ABG HCO3 28.1 mmol/L (21.0-28.0); ABG PCO2 38.6 mmHg (32.0-45.0); ABG PO2 104.8 mmHg (83.0-108.0); ABG SITE LEFT RADIAL; ABG TOTAL HEMOGLOBIN 8.5 G/dL (12.0-16.0); AaDO2 98.1 mmHg; COHb 0.5 % (0.5-1.5); MetHb 0.4 % (0.0-1.5); VT, ABG 375 mL
[2025-01-06] MEDS: POTASSIUM CHLORIDE 50 ML IV SCH (09:44)
[2025-01-06] MEDS: POTASSIUM CHLORIDE 20 MEQ POWDER PACKET GT ONE (09:47)
[2025-01-06] MEDS: LABETALOL HCL IV 250 MG in IV DEXTROSE 5% 200 ML IV PRN (13:11)
[2025-01-07] VITALS (59 sets, daily range): BP systolic 86–111; BP diastolic 51–78; TEMP 97.8–99; O2SAT 97–100
[2025-01-07 05:03] LABS: EOSINOPHILS % (AUTO) 0.2 % (0.0-7.0); MONOCYTES # (AUTO) 0.5 K/uL (0.1-1.30); NEUTROPHILS # (AUTO) 8.8 K/uL (1.8-8.9); PLATELET COUNT (AUTO) 181 K/uL (179-408)
[2025-01-07 05:04] LABS: BASOPHILS % (AUTO) 0.2 % (0.0-2.0); HEMATOCRIT 21.8 % (31.2-41.9); LYMPHOCYTES # (AUTO) 0.8 K/uL (0.8-4.8); LYMPHOCYTES % (AUTO) 7.9 % (20.5-51.5); MEAN CORPUSCULAR HEMOGLOBIN 26.6 uug (24.7-32.8); MEAN CORPUSCULAR HGB CONC 32 g/dL (32.3-35.6); MEAN CORPUSCULAR VOLUME 83.8 fL (75.5-95.3); MONOCYTES % (AUTO) 4.6 % (0.0-11.0); NEUTROPHILS % (AUTO) 87.1 % (38.5-71.5); RED CELL DISTRIBUTION WIDTH 23.5 % (12.3-17.7); WHITE BLOOD COUNT (AUTO) 10.1 K/uL (3.8-11.8)
[2025-01-07 05:38] LABS: CALCIUM 7.9 mg/dL (8.5-10.1); CREATININE 1.2 mg/dL (0.6-1.3); MAGNESIUM 1.6 mg/dL (1.8-2.4); PHOSPHOROUS 2.4 mg/dL (2.5-4.9)
[2025-01-07 05:39] LABS: HEMOGLOBIN 6.9 g/dL (10.9-14.3)
[2025-01-07 05:40] LABS: DIFFERENTIAL COMMENT 1
[2025-01-07 05:59] LABS: ABG HCO3 24.4 mmol/L (21.0-28.0); ABG PCO2 33.1 mmHg (32.0-45.0); ABG PH 7.485 (7.350-7.450); ABG SITE RIGHT BRACHIAL; ABG TOTAL HEMOGLOBIN 7.4 G/dL (12.0-16.0); AaDO2 98.3 mmHg; MetHb 0.5 % (0.0-1.5); O2Hb 96.7 % (94.0-98.0)
[2025-01-07 06:12] LABS: ANISOCYTOSIS 2+; HYPOCHROMASIA 1+; LYMPHOCYTES % (MANUAL) 3 % (20-40); MONOCYTES % (MANUAL) 5 % (2-10); NEUTROPHILS % (MANUAL) 92 % (42-75); PLATELET ESTIMATE ADEQUATE
[2025-01-07 06:13] LABS: TARGET CELLS 1+
[2025-01-07] MEDS: MAGNESIUM SULFATE/D5W 100 ML IV SCH (08:23)
[2025-01-07 13:12] LABS: HEMOGLOBIN 8.5 g/dL (10.9-14.3)
[2025-01-07] MEDS: NEUTRA PHOS PACKET GT ONE (17:40)
[2025-01-08] VITALS (68 sets, daily range): BP systolic 89–136; BP diastolic 56–98; TEMP 98–98.6; O2SAT 96–100
[2025-01-08 05:15] LABS: BASOPHILS % (AUTO) 0.3 % (0.0-2.0); EOSINOPHILS % (AUTO) 0.3 % (0.0-7.0); HEMATOCRIT 26.2 % (31.2-41.9); HEMOGLOBIN 8.6 g/dL (10.9-14.3); LYMPHOCYTES # (AUTO) 0.6 K/uL (0.8-4.8); LYMPHOCYTES % (AUTO) 6.5 % (20.5-51.5); MEAN CORPUSCULAR HEMOGLOBIN 28.3 uug (24.7-32.8); MEAN CORPUSCULAR HGB CONC 33 g/dL (32.3-35.6); MEAN CORPUSCULAR VOLUME 85.9 fL (75.5-95.3); MONOCYTES # (AUTO) 0.5 K/uL (0.1-1.30); MONOCYTES % (AUTO) 5.5 % (0.0-11.0); NEUTROPHILS # (AUTO) 8.1 K/uL (1.8-8.9); NEUTROPHILS % (AUTO) 87.4 % (38.5-71.5); PLATELET COUNT (AUTO) 187 K/uL (179-408); RED BLOOD CELL COUNT(AUTO) 3.05 MIL/uL (3.63-4.92); WHITE BLOOD COUNT (AUTO) 9.2 K/uL (3.8-11.8)
[2025-01-08 05:19] LABS: DIFFERENTIAL COMMENT 1
[2025-01-08 05:26] LABS: CALCIUM 8.2 mg/dL (8.5-10.1); CREATININE 1.1 mg/dL (0.6-1.3); MAGNESIUM 2.5 mg/dL (1.8-2.4); PHOSPHOROUS 2.9 mg/dL (2.5-4.9); POTASSIUM 3.2 mmol/L (3.5-5.1)
[2025-01-08 05:39] LABS: ABG BASE EXCESS 4.8 mmol/L (-2.0-3.0); ABG HCO3 28.1 mmol/L (21.0-28.0); ABG PH 7.499 (7.350-7.450); ABG SITE LEFT RADIAL; ABG TOTAL HEMOGLOBIN 10.2 G/dL (12.0-16.0); AaDO2 98.8 mmHg; COHb 0.9 % (0.5-1.5); MetHb 0.3 % (0.0-1.5); O2Hb 97.7 % (94.0-98.0); VT, ABG 375 mL
[2025-01-08] MEDS ORDERED: DC PROPOFOL ONCE EXTUBATED XX PRN (08:10)
[2025-01-08] MEDS: HYDROCORTISONE SOD SUCCINATE 100 MG/2 ML VIAL IV SCH (09:02)
[2025-01-08] MEDS: POTASSIUM CHLORIDE 50 ML IV SCH ×2 (09:03→09:29)
[2025-01-08] MEDS: BUMETANIDE 1 MG TABLET PO SCH (09:29)
[2025-01-08] MEDS: MEDIHONEY= THERAHONEY 1.5 OZ TUBE TOP SCH (11:00)
[2025-01-08] MEDS: ACETAMINOPHEN 650 MG/20.3 ML LIQUID UDC GT PRN (22:42)
[2025-01-09] VITALS (47 sets, daily range): BP systolic 87–118; BP diastolic 48–99; TEMP 98–98.4; O2SAT 97–100
[2025-01-09 05:27] LABS: BASOPHILS # (AUTO) 0.1 K/UL (0.0-0.2); BASOPHILS % (AUTO) 0.7 % (0.0-2.0); EOSINOPHILS # (AUTO) 0.1 K/uL (0.0-0.7); EOSINOPHILS % (AUTO) 0.5 % (0.0-7.0); HEMATOCRIT 26.3 % (31.2-41.9); HEMOGLOBIN 8.7 g/dL (10.9-14.3); LYMPHOCYTES # (AUTO) 0.9 K/uL (0.8-4.8); LYMPHOCYTES % (AUTO) 8.3 % (20.5-51.5); MEAN CORPUSCULAR HEMOGLOBIN 28.7 uug (24.7-32.8); MEAN CORPUSCULAR HGB CONC 33 g/dL (32.3-35.6); MEAN CORPUSCULAR VOLUME 87.1 fL (75.5-95.3); MONOCYTES # (AUTO) 0.7 K/uL (0.1-1.30); MONOCYTES % (AUTO) 6.6 % (0.0-11.0); NEUTROPHILS % (AUTO) 83.9 % (38.5-71.5); PLATELET COUNT (AUTO) 192 K/uL (179-408); RED BLOOD CELL COUNT(AUTO) 3.02 MIL/uL (3.63-4.92); RED CELL DISTRIBUTION WIDTH 23.9 % (12.3-17.7); WHITE BLOOD COUNT (AUTO) 10.8 K/uL (3.8-11.8)
[2025-01-09 05:33] LABS: DIFFERENTIAL COMMENT 1
[2025-01-09 05:37] LABS: ALBUMIN 2.1 g/dL (3.4-5.0); BILIRUBIN,DIRECT 0.5 mg/dL (0.0-0.2); BILIRUBIN,TOTAL 0.8 mg/dL (0.2-1.0); CALCIUM 7.9 mg/dL (8.5-10.1); CREATININE 1.1 mg/dL (0.6-1.3); PHOSPHOROUS 2.2 mg/dL (2.5-4.9); POTASSIUM 3.6 mmol/L (3.5-5.1); TOTAL PROTEIN, SERUM 5.8 g/dL (6.4-8.2)
[2025-01-09 05:41] LABS: ABG BASE EXCESS 4.9 mmol/L (-2.0-3.0); ABG HCO3 28.6 mmol/L (21.0-28.0); ABG PCO2 38.6 mmHg (32.0-45.0); ABG PH 7.488 (7.350-7.450); ABG SITE LEFT RADIAL; ABG TOTAL HEMOGLOBIN 9.4 G/dL (12.0-16.0); AaDO2 97.2 mmHg; COHb 0.7 % (0.5-1.5); MetHb 0.3 % (0.0-1.5); O2Hb 95.9 % (94.0-98.0)
[2025-01-09] MEDS: PANTOPRAZOLE ORAL SUSPENSION 40 MG SUSPDR.PKT GT SCH (09:37)
[2025-01-09] MEDS: POTASSIUM PHOSPHATE MM 15 MMOL in IV NORMAL SALINE 250 ML IV ONE (09:38)
[2025-01-09] MEDS ORDERED: DOSING BY PHARMACY-MD TO SPECIFY MED/ROUTE XX PRN (11:00)
[2025-01-09 15:41] LABS: HEMATOCRIT 28.2 % (31.2-41.9); HEMOGLOBIN 9.1 g/dL (10.9-14.3)
[2025-01-10] VITALS (47 sets, daily range): BP systolic 92–129; BP diastolic 59–87; TEMP 97.2–98.2; O2SAT 94–100
[2025-01-10] MEDS: IV D5/ 0.9% NACL 1,000 ML IV PRN (00:01)
[2025-01-10 05:53] LABS: BASOPHILS % (AUTO) 0.3 % (0.0-2.0); DIFFERENTIAL COMMENT 1; EOSINOPHILS % (AUTO) 0.3 % (0.0-7.0); HEMATOCRIT 27.1 % (31.2-41.9); HEMOGLOBIN 8.9 g/dL (10.9-14.3); LYMPHOCYTES # (AUTO) 0.5 K/uL (0.8-4.8); LYMPHOCYTES % (AUTO) 5.1 % (20.5-51.5); MEAN CORPUSCULAR HEMOGLOBIN 28.7 uug (24.7-32.8); MEAN CORPUSCULAR HGB CONC 33 g/dL (32.3-35.6); MEAN CORPUSCULAR VOLUME 87.5 fL (75.5-95.3); MONOCYTES # (AUTO) 0.6 K/uL (0.1-1.30); MONOCYTES % (AUTO) 5.7 % (0.0-11.0); NEUTROPHILS # (AUTO) 9.3 K/uL (1.8-8.9); NEUTROPHILS % (AUTO) 88.6 % (38.5-71.5); PLATELET COUNT (AUTO) 179 K/uL (179-408); RED BLOOD CELL COUNT(AUTO) 3.09 MIL/uL (3.63-4.92); RED CELL DISTRIBUTION WIDTH 24.1 % (12.3-17.7); WHITE BLOOD COUNT (AUTO) 10.5 K/uL (3.8-11.8)
[2025-01-10 06:03] LABS: CALCIUM 8.2 mg/dL (8.5-10.1); MAGNESIUM 1.8 mg/dL (1.8-2.4); PHOSPHOROUS 2.6 mg/dL (2.5-4.9); POTASSIUM 3.5 mmol/L (3.5-5.1)
[2025-01-10] MEDS ORDERED: LIDOCAINE 1%-EPI 1:100,000 20 ML VIAL ONE ×2 (07:31→08:33)
[2025-01-10] MEDS ORDERED: MIDAZOLAM HCL 10 MG/2 ML VIAL ONE (07:48)
[2025-01-10] MEDS ORDERED: FENTANYL CITRATE 100 MCG/2 ML AMPUL ONE (07:48)
[2025-01-10] MEDS ORDERED: CEFAZOLIN 1 G VIAL ONE (08:00)
[2025-01-10] MEDS ORDERED: ONDANSETRON 4 MG/2 ML VIAL IV PRN (09:15)
[2025-01-10] MEDS: DILTIAZEM HCL 30 MG TABLET PO SCH (11:02)
[2025-01-10] MEDS ORDERED: HEPARIN SODIUM,PORCINE 5,000 UNITS/ML VIAL SQ SCH (21:00)
[2025-01-10] MEDS: LORAZEPAM 2 MG/1 ML VIAL IV ONE (22:28)
[2025-01-11] VITALS (26 sets, daily range): BP systolic 94–121; BP diastolic 54–92; TEMP 96.8–98.5; O2SAT 95–100
[2025-01-11 04:16] LABS: BASOPHILS % (AUTO) 0.2 % (0.0-2.0); EOSINOPHILS % (AUTO) 0.3 % (0.0-7.0); HEMATOCRIT 25.2 % (31.2-41.9); HEMOGLOBIN 8.2 g/dL (10.9-14.3); LYMPHOCYTES # (AUTO) 0.4 K/uL (0.8-4.8); LYMPHOCYTES % (AUTO) 4.9 % (20.5-51.5); MEAN CORPUSCULAR HEMOGLOBIN 28.8 uug (24.7-32.8); MEAN CORPUSCULAR HGB CONC 33 g/dL (32.3-35.6); MONOCYTES # (AUTO) 0.4 K/uL (0.1-1.30); MONOCYTES % (AUTO) 4.4 % (0.0-11.0); NEUTROPHILS # (AUTO) 7.4 K/uL (1.8-8.9); NEUTROPHILS % (AUTO) 90.2 % (38.5-71.5); PLATELET COUNT (AUTO) 180 K/uL (179-408); RED BLOOD CELL COUNT(AUTO) 2.86 MIL/uL (3.63-4.92); RED CELL DISTRIBUTION WIDTH 25.6 % (12.3-17.7); WHITE BLOOD COUNT (AUTO) 8.2 K/uL (3.8-11.8)
[2025-01-11 04:24] LABS: CALCIUM 7.9 mg/dL (8.5-10.1); CREATININE 0.9 mg/dL (0.6-1.3); DIFFERENTIAL COMMENT 1; MAGNESIUM 1.8 mg/dL (1.8-2.4); PHOSPHOROUS 2.6 mg/dL (2.5-4.9); POTASSIUM 3.3 mmol/L (3.5-5.1)
[2025-01-11] MEDS: POTASSIUM CHLORIDE 20 MEQ POWDER PACKET GT SCH (08:12)
[2025-01-11] MEDS: HEPARIN SODIUM,PORCINE 5,000 UNITS/ML VIAL SQ SCH (08:16)
[2025-01-11] MEDS: ALPRAZOLAM 0.25 MG TABLET PO PRN ×3 (12:36→22:35)
[2025-01-12] VITALS (25 sets, daily range): BP systolic 96–135; BP diastolic 48–91; TEMP 97.1–97.7; O2SAT 93–100
[2025-01-12] MEDS: QUETIAPINE FUMARATE 25 MG TABLET PO SCH (04:27)
[2025-01-12 05:59] LABS: BASOPHILS # (AUTO) 0.1 K/UL (0.0-0.2); BASOPHILS % (AUTO) 0.6 % (0.0-2.0); EOSINOPHILS % (AUTO) 0.5 % (0.0-7.0); HEMATOCRIT 26.9 % (31.2-41.9); HEMOGLOBIN 8.7 g/dL (10.9-14.3); LYMPHOCYTES # (AUTO) 0.8 K/uL (0.8-4.8); LYMPHOCYTES % (AUTO) 9.4 % (20.5-51.5); MEAN CORPUSCULAR HEMOGLOBIN 28.8 uug (24.7-32.8); MEAN CORPUSCULAR HGB CONC 32 g/dL (32.3-35.6); MEAN CORPUSCULAR VOLUME 89.1 fL (75.5-95.3); MONOCYTES # (AUTO) 0.5 K/uL (0.1-1.30); MONOCYTES % (AUTO) 6.1 % (0.0-11.0); NEUTROPHILS # (AUTO) 7.3 K/uL (1.8-8.9); NEUTROPHILS % (AUTO) 83.4 % (38.5-71.5); PLATELET COUNT (AUTO) 184 K/uL (179-408); RED BLOOD CELL COUNT(AUTO) 3.02 MIL/uL (3.63-4.92); RED CELL DISTRIBUTION WIDTH 26.1 % (12.3-17.7); WHITE BLOOD COUNT (AUTO) 8.8 K/uL (3.8-11.8)
[2025-01-12 06:02] LABS: DIFFERENTIAL COMMENT 1
[2025-01-12 06:07] LABS: CALCIUM 8.1 mg/dL (8.5-10.1); CREATININE 1.1 mg/dL (0.6-1.3); MAGNESIUM 1.8 mg/dL (1.8-2.4); PHOSPHOROUS 2.6 mg/dL (2.5-4.9); POTASSIUM 4.1 mmol/L (3.5-5.1)
[2025-01-12] MEDS: DIGOXIN 500 MCG/2 ML AMP IV ONE ×3 (08:01→12:52)
[2025-01-12] MEDS: ENOXAPARIN SODIUM 60 MG/0.6 ML DISP.SYRIN SQ SCH (08:10)
[2025-01-12] MEDS: GLUCERNA 1.2 1000ML LIQUID GT PRN (08:19)
[2025-01-12] MEDS: BUMETANIDE 1 MG TABLET PO SCH (08:53)
[2025-01-12] MEDS: MAGNESIUM SULFATE/D5W 100 ML IV SCH (09:14)
[2025-01-12] MEDS: busPIRone 5 MG TABLET PO SCH (17:12)
[2025-01-13] VITALS (18 sets, daily range): BP systolic 109–142; BP diastolic 65–95; TEMP 97.4–98.2; O2SAT 96–100
[2025-01-13 04:34] LABS: BASOPHILS % (AUTO) 0.3 % (0.0-2.0); EOSINOPHILS # (AUTO) 0.1 K/uL (0.0-0.7); EOSINOPHILS % (AUTO) 1.8 % (0.0-7.0); HEMATOCRIT 27.8 % (31.2-41.9); HEMOGLOBIN 9.1 g/dL (10.9-14.3); LYMPHOCYTES # (AUTO) 1.2 K/uL (0.8-4.8); MEAN CORPUSCULAR HGB CONC 33 g/dL (32.3-35.6); MONOCYTES # (AUTO) 0.8 K/uL (0.1-1.30); MONOCYTES % (AUTO) 9.2 % (0.0-11.0); NEUTROPHILS % (AUTO) 73.7 % (38.5-71.5); PLATELET COUNT (AUTO) 209 K/uL (179-408); RED BLOOD CELL COUNT(AUTO) 3.12 MIL/uL (3.63-4.92); RED CELL DISTRIBUTION WIDTH 25.5 % (12.3-17.7); WHITE BLOOD COUNT (AUTO) 8.2 K/uL (3.8-11.8)
[2025-01-13 04:41] LABS: DIFFERENTIAL COMMENT 1
[2025-01-13 04:54] LABS: ALBUMIN 2.2 g/dL (3.4-5.0); BILIRUBIN,DIRECT 0.3 mg/dL (0.0-0.2); BILIRUBIN,TOTAL 0.9 mg/dL (0.2-1.0); CALCIUM 8.4 mg/dL (8.5-10.1); CREATININE 1.1 mg/dL (0.6-1.3); MAGNESIUM 2.1 mg/dL (1.8-2.4); PHOSPHOROUS 2.2 mg/dL (2.5-4.9); POTASSIUM 3.5 mmol/L (3.5-5.1); TOTAL PROTEIN, SERUM 5.9 g/dL (6.4-8.2)
[2025-01-13] MEDS: HYDROCORTISONE SOD SUCCINATE 100 MG/2 ML VIAL IV SCH (08:03)
[2025-01-13] MEDS: DIGOXIN 125 MCG TABLET PO SCH (08:04)
[2025-01-13] MEDS: ENOXAPARIN SODIUM 60 MG/0.6 ML DISP.SYRIN SQ SCH (08:07)
[2025-01-13] MEDS: POTASSIUM CHLORIDE 20 MEQ POWDER PACKET GT ONE (08:55)
[2025-01-13] MEDS ORDERED: POTASSIUM PHOSPHATE MM 7.5 MMOL in IV NORMAL SALINE 97.5 ML IV ONE (10:15)
[2025-01-13] MEDS: MORPHINE SULFATE 2 MG/1 ML DISP.SYRIN IV PRN (15:07)
[2025-01-13 16:39] LABS: *OCCULT BLOOD STOOL POSITIVE (NEGATIVE)
[2025-01-13] MEDS: NEUTRA PHOS PACKET NG ONE (17:07)
[2025-01-14] VITALS (7 sets, daily range): BP systolic 99–148; BP diastolic 51–88; TEMP 97.4–98.5; O2SAT 91–99
[2025-01-14 06:46] LABS: BASOPHILS % (AUTO) 0.7 % (0.0-2.0); EOSINOPHILS # (AUTO) 0.2 K/uL (0.0-0.7); EOSINOPHILS % (AUTO) 2.2 % (0.0-7.0); HEMATOCRIT 28.4 % (31.2-41.9); HEMOGLOBIN 9.4 g/dL (10.9-14.3); LYMPHOCYTES # (AUTO) 1.2 K/uL (0.8-4.8); LYMPHOCYTES % (AUTO) 17.8 % (20.5-51.5); MEAN CORPUSCULAR HEMOGLOBIN 29.4 uug (24.7-32.8); MEAN CORPUSCULAR HGB CONC 33 g/dL (32.3-35.6); MEAN CORPUSCULAR VOLUME 89.1 fL (75.5-95.3); MONOCYTES # (AUTO) 0.7 K/uL (0.1-1.30); MONOCYTES % (AUTO) 9.6 % (0.0-11.0); NEUTROPHILS # (AUTO) 4.9 K/uL (1.8-8.9); NEUTROPHILS % (AUTO) 69.7 % (38.5-71.5); PLATELET COUNT (AUTO) 226 K/uL (179-408); RED BLOOD CELL COUNT(AUTO) 3.19 MIL/uL (3.63-4.92); RED CELL DISTRIBUTION WIDTH 25.7 % (12.3-17.7)
[2025-01-14 06:48] LABS: DIFFERENTIAL COMMENT 1
[2025-01-14 07:05] LABS: CALCIUM 8.5 mg/dL (8.5-10.1); CREATININE 0.9 mg/dL (0.6-1.3); DIGOXIN 1.5 ng/mL (0.9-2.0); MAGNESIUM 1.8 mg/dL (1.8-2.4); POTASSIUM 3.4 mmol/L (3.5-5.1)
[2025-01-14] MEDS: ARGININE/GLUTAMINE/CALCIUM BMB 1 EACH POWD.PACK GT SCH (08:38)
[2025-01-14 11:09] LABS: CALCIUM 8.6 mg/dL (8.5-10.1); CREATININE 0.9 mg/dL (0.6-1.3); POTASSIUM 4.1 mmol/L (3.5-5.1)
[2025-01-14] MEDS: POTASSIUM CHLORIDE 20 MEQ TAB.PRT.SR PO ONE (12:23)
[2025-01-14] MEDS: WARFARIN SODIUM 2 MG TABLET PO SCH (17:24)
[2025-01-14 21:16] LABS: ANISOCYTOSIS 1+; BAND % (MANUAL) 2 % (0-10); HYPOCHROMASIA 1+; LYMPHOCYTES % (MANUAL) 18 % (20-40); METAMYELOCYTES % 1 % (0-1); MONOCYTES % (MANUAL) 7 % (2-10); NEUTROPHILS % (MANUAL) 72 % (42-75); PLATELET ESTIMATE ADEQUATE; TEAR DROP CELLS 1+
[2025-01-14 21:17] LABS: OVALOCYTES 1+
[2025-01-14] MEDS: busPIRone 10 MG TABLET PO SCH (21:22)
[2025-01-15 05:18] VITALS: BP 133/73; TEMP 98.1; O2SAT 93
[2025-01-15 06:58] LABS: BASOPHILS # (AUTO) 0.1 K/UL (0.0-0.2); BASOPHILS % (AUTO) 0.8 % (0.0-2.0); EOSINOPHILS # (AUTO) 0.2 K/uL (0.0-0.7); EOSINOPHILS % (AUTO) 2.4 % (0.0-7.0); HEMATOCRIT 27.6 % (31.2-41.9); HEMOGLOBIN 8.8 g/dL (10.9-14.3); LYMPHOCYTES % (AUTO) 13.9 % (20.5-51.5); MEAN CORPUSCULAR HGB CONC 32 g/dL (32.3-35.6); MEAN CORPUSCULAR VOLUME 90.7 fL (75.5-95.3); MONOCYTES # (AUTO) 0.5 K/uL (0.1-1.30); MONOCYTES % (AUTO) 7.2 % (0.0-11.0); NEUTROPHILS # (AUTO) 5.3 K/uL (1.8-8.9); NEUTROPHILS % (AUTO) 75.7 % (38.5-71.5); PLATELET COUNT (AUTO) 207 K/uL (179-408); RED BLOOD CELL COUNT(AUTO) 3.05 MIL/uL (3.63-4.92); RED CELL DISTRIBUTION WIDTH 26.1 % (12.3-17.7)
[2025-01-15 07:13] LABS: DIFFERENTIAL COMMENT 1
[2025-01-15 07:19] LABS: ALBUMIN 2.3 g/dL (3.4-5.0); BILIRUBIN,TOTAL 0.6 mg/dL (0.2-1.0); CALCIUM 8.6 mg/dL (8.5-10.1); CREATININE 0.9 mg/dL (0.6-1.3); MAGNESIUM 1.8 mg/dL (1.8-2.4); PHOSPHOROUS 2.6 mg/dL (2.5-4.9); POTASSIUM 3.7 mmol/L (3.5-5.1); TOTAL PROTEIN, SERUM 6.1 g/dL (6.4-8.2)
[2025-01-15 07:44] VITALS: BP 122/70; TEMP 98.4; O2SAT 97
[2025-01-15] MEDS ORDERED: busPIRone 5 MG TABLET PO SCH ×2 (09:00)
[2025-01-15] MEDS: busPIRone 5 MG TABLET PO SCH (09:38)
[2025-01-15 11:05] VITALS: BP 125/82; TEMP 98.6; O2SAT 98
[2025-01-15 15:36] VITALS: BP 99/74; TEMP 98.2; O2SAT 99
[2025-01-15] MEDS: WARFARIN SODIUM 4 MG TABLET PO ONE (17:38)
[2025-01-15] MEDS ORDERED: DEXTROSE 50% 50 ML DISP.SYRIN IV PRN (21:45)
[2025-01-15] MEDS: QUETIAPINE FUMARATE 25 MG TABLET PO PRN (22:49)
[2025-01-15 23:02] VITALS: BP 111/64; TEMP 99.4; O2SAT 100
[2025-01-16 02:37] VITALS: BP 110/66; TEMP 99.2; O2SAT 100
[2025-01-16 06:36] VITALS: BP 120/68; TEMP 99; O2SAT 99
[2025-01-16] MEDS: BLOOD SUGAR DIAGNOSTIC 1 EACH STRIP VI SCH (07:16)
[2025-01-16 07:22] VITALS: BP 132/71; TEMP 98; O2SAT 100
[2025-01-16 07:38] LABS: BASOPHILS # (AUTO) 0.1 K/UL (0.0-0.2); BASOPHILS % (AUTO) 1.6 % (0.0-2.0); EOSINOPHILS # (AUTO) 0.1 K/uL (0.0-0.7); EOSINOPHILS % (AUTO) 3.2 % (0.0-7.0); HEMATOCRIT 28.1 % (31.2-41.9); HEMOGLOBIN 9.1 g/dL (10.9-14.3); LYMPHOCYTES # (AUTO) 1.1 K/uL (0.8-4.8); LYMPHOCYTES % (AUTO) 24.7 % (20.5-51.5); MEAN CORPUSCULAR HEMOGLOBIN 29.4 uug (24.7-32.8); MEAN CORPUSCULAR HGB CONC 33 g/dL (32.3-35.6); MEAN CORPUSCULAR VOLUME 90.3 fL (75.5-95.3); MONOCYTES # (AUTO) 0.4 K/uL (0.1-1.30); MONOCYTES % (AUTO) 8.7 % (0.0-11.0); NEUTROPHILS # (AUTO) 2.8 K/uL (1.8-8.9); NEUTROPHILS % (AUTO) 61.8 % (38.5-71.5); PLATELET COUNT (AUTO) 214 K/uL (179-408); RED BLOOD CELL COUNT(AUTO) 3.11 MIL/uL (3.63-4.92); RED CELL DISTRIBUTION WIDTH 26.1 % (12.3-17.7); WHITE BLOOD COUNT (AUTO) 4.6 K/uL (3.8-11.8)
[2025-01-16 07:47] LABS: DIFFERENTIAL COMMENT 1
[2025-01-16] MEDS: GLIMEPIRIDE 2 MG TABLET PO SCH (09:40)
[2025-01-16] MEDS: ACIDOPHILUS/BULGARICUS CHEW TAB PO SCH (09:40)
[2025-01-16] MEDS: MULTIVITAMINS,THERAPEUTIC TABLET PO SCH (09:41)
[2025-01-16] MEDS ORDERED: ENOXAPARIN SODIUM 40 MG/0.4 ML DISP.SYRIN SQ SCH (09:48)
[2025-01-16] MEDS: PANTOPRAZOLE SODIUM 40 MG TABLET.DR PO SCH (10:07)
[2025-01-16 10:27] VITALS: BP 114/56; TEMP 98.2; O2SAT 98
[2025-01-16] MEDS: INSULIN REGULAR, HUMAN 1000 UNIT/10 ML VIAL SQ PRN (12:18)
[2025-01-16] MEDS: ENOXAPARIN SODIUM 60 MG/0.6 ML DISP.SYRIN SQ SCH (12:19)
[2025-01-16 15:35] VITALS: BP 152/89; TEMP 97.6; O2SAT 96
[2025-01-16] MEDS ORDERED: WARFARIN SODIUM 2 MG TABLET PO SCH (17:00)
[2025-01-16] MEDS: WARFARIN SODIUM 4 MG TABLET PO ONE (17:37)
[2025-01-16 19:00] VITALS: BP 111/62; TEMP 97.5; O2SAT 100
[2025-01-17 00:10] VITALS: BP 108/82; TEMP 98; O2SAT 100
[2025-01-17] MEDS: QUETIAPINE FUMARATE 25 MG TABLET PO PRN (01:55)
[2025-01-17 06:14] VITALS: BP 103/82; TEMP 97.7; O2SAT 100
[2025-01-17 07:39] VITALS: BP 122/69; TEMP 98.4; O2SAT 98
[2025-01-17] MEDS: busPIRone 5 MG TABLET PO SCH (09:24)
[2025-01-17] MEDS: QUETIAPINE FUMARATE 25 MG TABLET PO SCH (09:24)
[2025-01-17 11:03] VITALS: BP 122/88; TEMP 97.7; O2SAT 99
[2025-01-17 15:20] VITALS: BP 100/57; TEMP 98.3; O2SAT 94
[2025-01-17] MEDS: WARFARIN SODIUM 2 MG TABLET PO SCH (17:45)
[2025-01-17 20:00] VITALS: BP 115/60; TEMP 98.2; O2SAT 100
[2025-01-18 06:02] VITALS: BP 113/59; TEMP 98.1; O2SAT 96
[2025-01-18 07:02] LABS: BASOPHILS % (AUTO) 0.8 % (0.0-2.0); EOSINOPHILS # (AUTO) 0.2 K/uL (0.0-0.7); EOSINOPHILS % (AUTO) 2.7 % (0.0-7.0); HEMOGLOBIN 9.3 g/dL (10.9-14.3); LYMPHOCYTES # (AUTO) 1.1 K/uL (0.8-4.8); MEAN CORPUSCULAR HGB CONC 33 g/dL (32.3-35.6); MEAN CORPUSCULAR VOLUME 90.4 fL (75.5-95.3); MONOCYTES # (AUTO) 0.6 K/uL (0.1-1.30); MONOCYTES % (AUTO) 9.8 % (0.0-11.0); NEUTROPHILS # (AUTO) 4.1 K/uL (1.8-8.9); NEUTROPHILS % (AUTO) 68.7 % (38.5-71.5); PLATELET COUNT (AUTO) 264 K/uL (179-408); RED CELL DISTRIBUTION WIDTH 24.8 % (12.3-17.7); WHITE BLOOD COUNT (AUTO) 5.9 K/uL (3.8-11.8)
[2025-01-18 07:33] LABS: ALBUMIN 2.7 g/dL (3.4-5.0); BILIRUBIN,TOTAL 0.7 mg/dL (0.2-1.0); PHOSPHOROUS 2.7 mg/dL (2.5-4.9); POTASSIUM 3.5 mmol/L (3.5-5.1); TOTAL PROTEIN, SERUM 7.3 g/dL (6.4-8.2)
[2025-01-18 07:39] LABS: DIFFERENTIAL COMMENT 1
[2025-01-18 11:00] LABS: ANISOCYTOSIS 3+; BAND % (MANUAL) 2 % (0-10); EOSINOPHILS % (MANUAL) 5 % (0-8); LYMPHOCYTES % (MANUAL) 14 % (20-40); MONOCYTES % (MANUAL) 11 % (2-10); NEUTROPHILS % (MANUAL) 68 % (42-75); PLATELET ESTIMATE ADEQUATE
[2025-01-18 12:06] VITALS: BP 117/71; TEMP 98; O2SAT 100; O2SAT 99
[2025-01-18 15:57] VITALS: BP 113/69; TEMP 98; O2SAT 100
[2025-01-18 19:45] VITALS: BP 109/66; TEMP 98.3; O2SAT 100
[2025-01-19 04:59] VITALS: BP 110/63; TEMP 97.6; O2SAT 99
[2025-01-19 07:23] LABS: BASOPHILS # (AUTO) 0.1 K/UL (0.0-0.2); BASOPHILS % (AUTO) 1.1 % (0.0-2.0); EOSINOPHILS # (AUTO) 0.2 K/uL (0.0-0.7); EOSINOPHILS % (AUTO) 4.4 % (0.0-7.0); HEMATOCRIT 33.1 % (31.2-41.9); HEMOGLOBIN 10.7 g/dL (10.9-14.3); LYMPHOCYTES % (AUTO) 19.7 % (20.5-51.5); MEAN CORPUSCULAR HEMOGLOBIN 29.6 uug (24.7-32.8); MEAN CORPUSCULAR HGB CONC 32 g/dL (32.3-35.6); MEAN CORPUSCULAR VOLUME 91.6 fL (75.5-95.3); MONOCYTES # (AUTO) 0.4 K/uL (0.1-1.30); MONOCYTES % (AUTO) 8.5 % (0.0-11.0); NEUTROPHILS # (AUTO) 3.5 K/uL (1.8-8.9); NEUTROPHILS % (AUTO) 66.3 % (38.5-71.5); PLATELET COUNT (AUTO) 283 K/uL (179-408); RED BLOOD CELL COUNT(AUTO) 3.61 MIL/uL (3.63-4.92); RED CELL DISTRIBUTION WIDTH 25.2 % (12.3-17.7); WHITE BLOOD COUNT (AUTO) 5.2 K/uL (3.8-11.8)
[2025-01-19 07:32] LABS: DIFFERENTIAL COMMENT 1
[2025-01-19 07:34] LABS: CALCIUM 9.4 mg/dL (8.5-10.1); CREATININE 0.9 mg/dL (0.6-1.3); POTASSIUM 3.5 mmol/L (3.5-5.1)
[2025-01-19] MEDS: QUETIAPINE FUMARATE 25 MG TABLET PO SCH (08:26)
[2025-01-19] MEDS: POTASSIUM CHLORIDE 20 MEQ POWDER PACKET PO ONE (08:27)
[2025-01-19 12:00] VITALS: BP 101/53; TEMP 97.8; O2SAT 100
[2025-01-19 16:00] VITALS: BP 93/63; TEMP 98.3; O2SAT 99
[2025-01-19] MEDS ORDERED: ACETAMINOPHEN 650 MG/20.3 ML LIQUID UDC PO PRN (16:30)
[2025-01-19] MEDS: ACETAMINOPHEN 325 MG TABLET PO PRN (16:59)
[2025-01-19 19:15] VITALS: BP 113/55; TEMP 98.7; O2SAT 100
[2025-01-20 05:37] VITALS: BP 121/64; TEMP 97.8; O2SAT 100
[2025-01-20 06:17] LABS: BASOPHILS % (AUTO) 0.7 % (0.0-2.0); EOSINOPHILS # (AUTO) 0.2 K/uL (0.0-0.7); EOSINOPHILS % (AUTO) 3.3 % (0.0-7.0); HEMATOCRIT 27.9 % (31.2-41.9); HEMOGLOBIN 9.2 g/dL (10.9-14.3); LYMPHOCYTES # (AUTO) 1.1 K/uL (0.8-4.8); LYMPHOCYTES % (AUTO) 20.2 % (20.5-51.5); MEAN CORPUSCULAR HEMOGLOBIN 30.2 uug (24.7-32.8); MEAN CORPUSCULAR HGB CONC 33 g/dL (32.3-35.6); MEAN CORPUSCULAR VOLUME 91.4 fL (75.5-95.3); MONOCYTES # (AUTO) 0.5 K/uL (0.1-1.30); MONOCYTES % (AUTO) 8.6 % (0.0-11.0); NEUTROPHILS # (AUTO) 3.7 K/uL (1.8-8.9); NEUTROPHILS % (AUTO) 67.2 % (38.5-71.5); PLATELET COUNT (AUTO) 290 K/uL (179-408); RED BLOOD CELL COUNT(AUTO) 3.05 MIL/uL (3.63-4.92); RED CELL DISTRIBUTION WIDTH 25.5 % (12.3-17.7); WHITE BLOOD COUNT (AUTO) 5.6 K/uL (3.8-11.8)
[2025-01-20 06:21] LABS: DIFFERENTIAL COMMENT 1
[2025-01-20 06:35] LABS: CALCIUM 8.3 mg/dL (8.5-10.1); CREATININE 1.1 mg/dL (0.6-1.3); POTASSIUM 3.8 mmol/L (3.5-5.1)
[2025-01-20] MEDS: REMEDY ESSENTIAL ZINC PASTE 113 GM TP PRN (09:09)
[2025-01-20 10:55] VITALS: BP 98/46; TEMP 98.4; O2SAT 95
[2025-01-20 15:44] VITALS: BP 99/52; TEMP 97.7; O2SAT 96
[2025-01-20 19:15] VITALS: BP 109/68; TEMP 98.1; O2SAT 100
[2025-01-20 19:45] VITALS: BP 109/68; TEMP 98.1; O2SAT 100
[2025-01-20 20:10] VITALS: BP 133/69; TEMP 98; O2SAT 97
[2025-01-21 04:48] VITALS: BP 106/52; TEMP 98.1; O2SAT 99
[2025-01-21 04:53] VITALS: BP 106/52; TEMP 98.1; O2SAT 99
[2025-01-21 06:55] LABS: BASOPHILS # (AUTO) 0.1 K/UL (0.0-0.2); BASOPHILS % (AUTO) 1.2 % (0.0-2.0); EOSINOPHILS # (AUTO) 0.1 K/uL (0.0-0.7); EOSINOPHILS % (AUTO) 2.6 % (0.0-7.0); HEMATOCRIT 26.6 % (31.2-41.9); HEMOGLOBIN 8.9 g/dL (10.9-14.3); LYMPHOCYTES # (AUTO) 1.2 K/uL (0.8-4.8); LYMPHOCYTES % (AUTO) 21.9 % (20.5-51.5); MEAN CORPUSCULAR HEMOGLOBIN 30.3 uug (24.7-32.8); MEAN CORPUSCULAR HGB CONC 34 g/dL (32.3-35.6); MEAN CORPUSCULAR VOLUME 90.6 fL (75.5-95.3); MONOCYTES # (AUTO) 0.5 K/uL (0.1-1.30); MONOCYTES % (AUTO) 9.1 % (0.0-11.0); NEUTROPHILS # (AUTO) 3.7 K/uL (1.8-8.9); NEUTROPHILS % (AUTO) 65.2 % (38.5-71.5); PLATELET COUNT (AUTO) 298 K/uL (179-408); RED BLOOD CELL COUNT(AUTO) 2.93 MIL/uL (3.63-4.92); RED CELL DISTRIBUTION WIDTH 24.8 % (12.3-17.7); WHITE BLOOD COUNT (AUTO) 5.7 K/uL (3.8-11.8)
[2025-01-21 06:58] LABS: DIFFERENTIAL COMMENT 1
[2025-01-21 07:01] LABS: CALCIUM 8.8 mg/dL (8.5-10.1); POTASSIUM 3.7 mmol/L (3.5-5.1)
[2025-01-21 07:50] LABS: MAGNESIUM 1.8 mg/dL (1.8-2.4); PHOSPHOROUS 2.3 mg/dL (2.5-4.9)
[2025-01-21 10:42] VITALS: BP 120/64; TEMP 98.1; O2SAT 96
[2025-01-21 15:10] VITALS: BP 115/66; TEMP 98.3; O2SAT 99
[2025-01-21] MEDS: NEUTRA PHOS PACKET PO ONE (16:50)
[2025-01-21 19:30] VITALS: BP 114/57; TEMP 98.1; O2SAT 100
[2025-01-21 20:00] VITALS: BP 114/57; TEMP 98.1; O2SAT 100
[2025-01-22 05:10] VITALS: BP 123/61; TEMP 98.3; O2SAT 100
[2025-01-22 06:36] VITALS: BP 123/61; TEMP 98.3; O2SAT 100
[2025-01-22 10:51] VITALS: BP 123/63; TEMP 98; O2SAT 96
[2025-01-22 15:43] VITALS: BP 121/49; TEMP 98; O2SAT 99
[2025-01-22 19:00] VITALS: BP 109/67; TEMP 98.7; O2SAT 99
[2025-01-23 06:07] VITALS: BP 113/64; TEMP 98.4; O2SAT 100
[2025-01-23 06:48] LABS: BASOPHILS # (AUTO) 0.1 K/UL (0.0-0.2); EOSINOPHILS # (AUTO) 0.2 K/uL (0.0-0.7); EOSINOPHILS % (AUTO) 2.5 % (0.0-7.0); HEMATOCRIT 27.5 % (31.2-41.9); HEMOGLOBIN 9.1 g/dL (10.9-14.3); LYMPHOCYTES # (AUTO) 1.3 K/uL (0.8-4.8); LYMPHOCYTES % (AUTO) 21.2 % (20.5-51.5); MEAN CORPUSCULAR HEMOGLOBIN 30.5 uug (24.7-32.8); MEAN CORPUSCULAR HGB CONC 33 g/dL (32.3-35.6); MEAN CORPUSCULAR VOLUME 91.7 fL (75.5-95.3); MONOCYTES # (AUTO) 0.6 K/uL (0.1-1.30); MONOCYTES % (AUTO) 9.7 % (0.0-11.0); NEUTROPHILS # (AUTO) 4.1 K/uL (1.8-8.9); NEUTROPHILS % (AUTO) 65.6 % (38.5-71.5); PLATELET COUNT (AUTO) 342 K/uL (179-408); RED CELL DISTRIBUTION WIDTH 24.4 % (12.3-17.7); WHITE BLOOD COUNT (AUTO) 6.3 K/uL (3.8-11.8)
[2025-01-23 06:51] LABS: ALBUMIN 2.6 g/dL (3.4-5.0); BILIRUBIN,DIRECT 0.2 mg/dL (0.0-0.2); BILIRUBIN,TOTAL 0.5 mg/dL (0.2-1.0); CALCIUM 8.8 mg/dL (8.5-10.1); CREATININE 0.8 mg/dL (0.6-1.3); DIFFERENTIAL COMMENT 1; MAGNESIUM 1.9 mg/dL (1.8-2.4); PHOSPHOROUS 3.1 mg/dL (2.5-4.9); TOTAL PROTEIN, SERUM 7.1 g/dL (6.4-8.2)
== END 2025-01-23 09:15 | DRG 171 ==
LOC: ER 19:30 → TELE3 21:00 → UNDOADMIN 21:00 → TELE-TD3 21:30 → CCU 12-25 08:51 → TELE3 01-13 17:49 → MEDSURG3 01-17 21:30
PROVIDERS: ADMIT Nurse Practitioner Acute Care; ATTEND Nurse Practitioner Acute Care
PROC: 0BH17EZ Insertion of Endotracheal Airway into Trachea, Via Natural or Artificial Opening (ICD-10-PCS; principal; 2024-12-25)
PROC: 5A12012 Performance of Cardiac Output, Single, Manual (ICD-10-PCS; principal; 2024-12-25)
PROC: 5A1955Z Respiratory Ventilation, Greater than 96 Consecutive Hours (ICD-10-PCS; principal; 2024-12-25)
PROC: 02HV33Z Insertion of Infusion Device into Superior Vena Cava, Percutaneous Approach (ICD-10-PCS; principal; 2024-12-25)
PROC: 30243K1 Transfusion of Nonautologous Frozen Plasma into Central Vein, Percutaneous Approach (ICD-10-PCS; 2024-12-28)
PROC: 30243N1 Transfusion of Nonautologous Red Blood Cells into Central Vein, Percutaneous Approach (ICD-10-PCS; 2025-01-07)
PROC: 3E0102A Introduction of Anti-Infective Envelope into Subcutaneous Tissue, Open Approach (ICD-10-PCS; 2025-01-10)
PROC: 0JH604Z Insertion of Pacemaker, Single Chamber into Chest Subcutaneous Tissue and Fascia, Open Approach (ICD-10-PCS; 2025-01-10)
PROC: 02HK0JZ Insertion of Pacemaker Lead into Right Ventricle, Open Approach (ICD-10-PCS; 2025-01-10)
DX: I49.5 Sick sinus syndrome (principal); J96.01 Acute respiratory failure with hypoxia; K72.00 Acute and subacute hepatic failure without coma; N17.0 Acute kidney failure with tubular necrosis; R65.21 Severe sepsis with septic shock; J69.0 Pneumonitis due to inhalation of food and vomit; A41.9 Sepsis, unspecified organism; G92.8 Other toxic encephalopathy; I48.92 Unspecified atrial flutter; I48.20 Chronic atrial fibrillation, unspecified; Z79.01 Long term (current) use of anticoagulants; I46.9 Cardiac arrest, cause unspecified; N39.0 Urinary tract infection, site not specified; B96.20 Unspecified Escherichia coli [E. coli] as the cause of diseases classified elsewhere; D68.4 Acquired coagulation factor deficiency; I50.43 Acute on chronic combined systolic (congestive) and diastolic (congestive) heart failure; I08.1 Rheumatic disorders of both mitral and tricuspid valves; K21.9 Gastro-esophageal reflux disease without esophagitis; R26.89 Other abnormalities of gait and mobility; Z91.148 Patient's other noncompliance with medication regimen for other reason; Z91.041 Radiographic dye allergy status; Z79.899 Other long term (current) drug therapy; Z86.2 Personal history of diseases of the blood and blood-forming organs and certain disorders involving the immune mechanism; G93.89 Other specified disorders of brain; K59.00 Constipation, unspecified; I25.10 Atherosclerotic heart disease of native coronary artery without angina pectoris; E87.0 Hyperosmolality and hypernatremia; E87.4 Mixed disorder of acid-base balance; E87.6 Hypokalemia; E88.09 Other disorders of plasma-protein metabolism, not elsewhere classified; E83.39 Other disorders of phosphorus metabolism; I44.1 Atrioventricular block, second degree; S09.90XA Unspecified injury of head, initial encounter; W18.39XA Other fall on same level, initial encounter; Y92.032 Bedroom in apartment as the place of occurrence of the external cause; K62.89 Other specified diseases of anus and rectum; K52.9 Noninfective gastroenteritis and colitis, unspecified; Z86.73 Personal history of transient ischemic attack (TIA), and cerebral infarction without residual deficits; M89.8X9 Other specified disorders of bone, unspecified site; E43 Unspecified severe protein-calorie malnutrition; E11.649 Type 2 diabetes mellitus with hypoglycemia without coma; E11.65 Type 2 diabetes mellitus with hyperglycemia; F41.0 Panic disorder [episodic paroxysmal anxiety]; N18.9 Chronic kidney disease, unspecified; E11.22 Type 2 diabetes mellitus with diabetic chronic kidney disease; D50.9 Iron deficiency anemia, unspecified; D68.9 Coagulation defect, unspecified; D69.6 Thrombocytopenia, unspecified; F05 Delirium due to known physiological condition; Z98.890 Other specified postprocedural states; M79.81 Nontraumatic hematoma of soft tissue; T45.515A Adverse effect of anticoagulants, initial encounter; Y92.230 Patient room in hospital as the place of occurrence of the external cause
CPT/HCPCS: 36415; 36569; 36600; 70030-TC; 70450; 71045; 71250; 74018; 76604; 76705; 76770; 82378; 82746; 82784; 82803; 83550; 83605; 83735; 83970; 84100; 84155; 84165; 84295; 84300; 84443; 84478; 84484; 85018; 85025; 85610; 85730; 86038; 86140; 86334; 86430; 86704; 86706; 86803; 86850; 86900; 86901; 86920; 87040; 87077; 87086; 87340; 87806; 93307; 94002; 94003; 94760; 97535-GO-CO; 99082-TC; A4565; A4606; A4649; A4663; A6209; A6213; C1786; G0378; J0132; J0171; J0278; J0290; J0461; J0690; J1160; J1644; J1650; J1720; J1815; J1938; J1940; J2060; J2250; J2270; J2405; J2470; J2543; J2916; J3010; J3370; J3430; J3475; J3480; J3490; J7040; J7042; J7050; J7070; J7120; P9016; P9059